=== PATIENT | female | born 1970 | race Caucasian/White ===

== ENCOUNTER 2023-04-13 08:18 | Day surgery (SDC) | payer OTHER ==
[2023-04-13 08:49] VITALS: RESP 18; TEMP 98.3
[2023-04-13] MEDS ORDERED: SODIUM CHLORIDE 0.9% 500 ML 500 ML IV ONE (08:49)
[2023-04-13] MEDS ORDERED: fentaNYL (PF) 50 MCG/ML 2 ML AMP ONE (10:07)
[2023-04-13] MEDS ORDERED: BENZOCAINE SPRAY 1 CAN TOPICAL ONE ×2 (10:21→10:26)
[2023-04-13] MEDS ORDERED: MIDAZOLAM 2 MG/2 ML VIAL IVP ONE (10:38)
[2023-04-13] MEDS ORDERED: fentaNYL (PF) 50 MCG/1 ML VIAL IVP ONE (10:51)
--- NOTE | 2023-04-13 11:29 | ECHOT ---
TRANSESOPHAGEAL ECHOCARDIOGRAM INDICATION: CVA, rule out cardiac source of thromboembolic phenomenon. PROCEDURE NOTE: After obtaining informed consent, transesophageal echocardiogram was performed in left lateral position using an Omniplane probe. Local and IV sedation were obtained using Xylocaine spray, 2 mg of Versed and 50 mcg of fentanyl. Total sedation time was 10 minutes. The patient tolerated the procedure well without any obvious immediate complications. FINDINGS: 1. There is no intracardiac thrombus within the left atrial appendage, left atrium, right atrium, right ventricle. 2. Left ventricle has normal size and systolic function. 3. Interatrial septum, there is no evidence of [id number]-aa-[id number] shunt by color-flow Doppler or [id number] shunt by agitated saline contrast study. 4. Left ventricle has normal size and systolic function. 5. Mitral valve is anatomically normal. There is mild mitral regurgitation noted. 6. Aortic valve is a 3-leaflet valve. There is no evidence of aortic stenosis or regurgitation. 7. There is mild tricuspid regurgitation. CONCLUSIONS: 1. No intracardiac thrombus. 2. Normal LV function. 3. No evidence of shunt across the interatrial septum. PLAN: I will do a monitor on her to rule out atrial fibrillation. MMODL / IJN: [id number] /
[2023-04-13] MEDS ORDERED: SODIUM CHLORIDE 0.9% 1,000 ML IV SCH (11:45)
[2023-04-13 11:52] VITALS: BP 123/58; PULSE 66
== END 2023-04-13 11:53 | disposition home or self-care (01) ==
LOC: CATHCVL 08:18
PROVIDERS: ATTEND Internal Medicine Cardiovascular Disease
DX: I67.9 Cerebrovascular disease, unspecified (principal); I34.0 Nonrheumatic mitral (valve) insufficiency; I63.81 Other cerebral infarction due to occlusion or stenosis of small artery; E78.2 Mixed hyperlipidemia; Z88.5 Allergy status to narcotic agent; Z88.2 Allergy status to sulfonamides; F17.210 Nicotine dependence, cigarettes, uncomplicated; Z79.02 Long term (current) use of antithrombotics/antiplatelets; Z79.83 Long term (current) use of bisphosphonates; Z79.899 Other long term (current) drug therapy
CPT/HCPCS: 93312; 93320; 93325; 81025; J2250; J3010

== ENCOUNTER → 2023-09-07 | Outpatient (CLI) | payer OTHER ==
[2023-09-07 10:18] VITALS: BP 142/76; PULSE 96; RESP 16; TEMP 97.5
--- NOTE | 2023-09-07 14:31 | P.PAINPG ---
Objective - Vital Signs Vital signs: Intake & Output 09/06/23 09/07/23 09/07/23 18:59 06:59 18:59 Weight 74.843 kg PQRS Measure Charge Sheet Comment: HISTORY OF PRESENT ILLNESS: A 52 yr old female as a referral from [facility] presents today w severe and chronic neck pain x 5 yr secondary to DDD, spondylosis and facet arthropathy without myelopathy for evaluation. Pt states pain level is provoked at 10/10 in intensity, constant, localized in the mid to lower cervical spine, predominantly axial, throbbing/ electric in character w occasional shooting pain towards the BL shoulders. Pain is provoked by cold weather. Pain is alleviated by medications (Lyrica 50mg #90, Zanaflex 2mg #90, Mobic 15mg #30, Valium 2mg #60), PT 2 wks which she is currently in, heat, repositioning and rest. Cervical disability score at 22. PMH: OA, HTN, Hyperlipidemia, Asthma, Vitamin D Deficiency PSH: Can not recall SH: Hx of tobacco use, No ETOH abuse, Cannabis use FH: Noncontributory All: See list Meds: See list REVIEW OF ORGAN SYSTEMS: CONSTITUTIONAL: No fevers or chills. No recent weight loss. NEUROLOGICAL: + numbness and tingling along the distal extremities. No seizure disorders or headaches. MUSCULOSKELETAL: + pain PSYCHIATRIC: Denies current depression or suicidal thoughts. Physical Examinations : Constitutional : Cooperative , not in acute distress . Neurologic : Cranial nerve II to XII intact. No focal neurological deficits. Psychiatric : alert & oriented x 3. Matching mood & appropriate affect. Judgment & insight intact. Musculoskeletal : Cervical Spine Motor strength in the deltoid and biceps: Normal right side. Normal Left side Motor strength biceps and the wrist extensors: Normal right side . Normal left side Motor strength in the triceps muscle: Normal right side. Normal left side Deep tendon reflexes: Normal at the biceps. Normal at Brachioradialis. Normal at triceps Vertebral body tenderness to deep palpation over C6 Cervical facet loading test: positive bilaterally Spurling test: positive bilaterally C6- C7 Neck distraction test: positive bilaterally Keara sign: positive bilaterally Lumbar spine Motor strength lower extremities ,thigh and legs 5/5 Right side , 5/5 Left side Deep tendon reflexes : Normal Knee Jerk. Normal Ankle Jerk Vertebral body tenderness over Fererll Test positive Lumbar facet Loading Test: positive Right / positive Left Range of motion of the lumbar spine Flexion 30 degrees, extension 10 degrees Straight Leg Raise test: Left/ Right positive at degrees Zoila test: positive right / positive left. Severe tenderness over the Sacroiliac joint on the Right / Left sides Gaenslen test: positive bilaterally Seated flexion test: positive bilaterally. Sacral spine : Severe tenderness over the Sacroiliac joint: right side / left side Range of motion: Flexion of the lumbar spine <60 degrees Range of motion: Extension of the lumbar spine <20 degrees Gaenslen's Test positive Zoila test: positive right side / left side Thigh Thrust Test Sacral Thrust Test Imaging: MRI noncontrast of the lumbar spine from 04/04/23 MRI w/ without contrast of the cervical spine from 06/19/22 reviewed Assessment/ Plan : Cervical DDD Recommendation of HAYLEY C6-C7 #1. Risks, benefits of procedure discussed and patient verbalized understanding. Admits to anti- coagulant use or medical history of diabetes. Protocol for discontinuation/ continuation of medications alphonso procedure discussed. All questions answered. I have spent greater than 30 minutes on patient care today. Dr French was available by phone for the evaluation of this patient. The time was used to review the medical records including relevant urine studies and Prescription history (MAPs), review of the available imaging, evaluation and examination of the patient, coordination of care with the medical staff and if applicable referring physicians, as well as creation of the medical record Home Medications: Ambulatory Orders Aspirin [Adult Low Dose Aspirin EC] 81 mg PO DAILY 04/07/23 Atorvastatin Calcium 20 mg PO HS 04/07/23 HYDROcodone/APAP 5-325MG [[place] 5-325] 1 tab PO Q8H PRN 04/07/23 tiZANidine [Zanaflex] 2 mg PO Q8HR PRN 04/07/23 Controlled Substance Measures - Controlled Substance Measures Is patient prescribed a controlled substance at discharge?: No
== END ==
LOC: PNWHC3 09:25
PROVIDERS: ATTEND Specialist
DX: M50.323 Other cervical disc degeneration at C6-C7 level (principal); M51.26 Other intervertebral disc displacement, lumbar region; M19.90 Unspecified osteoarthritis, unspecified site; I10 Essential (primary) hypertension; E78.5 Hyperlipidemia, unspecified; J45.909 Unspecified asthma, uncomplicated; F12.90 Cannabis use, unspecified, uncomplicated; Z72.0 Tobacco use; Z79.82 Long term (current) use of aspirin; Z88.2 Allergy status to sulfonamides; Z88.5 Allergy status to narcotic agent
CPT/HCPCS: 99211

== ENCOUNTER 2023-09-22 07:58 | Day surgery (SDC) | payer OTHER ==
[2023-09-19 09:45] VITALS: BMI 29.2
[2023-09-22] MEDS ORDERED: LACTATED RINGERS 1,000 ML IV SCH (08:05)
[2023-09-22 08:20] VITALS: TEMP 96.9
[2023-09-22 08:28] LABS: Glucose,Whole Blood 104 mg/dL (70-110)
[2023-09-22] MEDS ORDERED: DEXAMETHASONE SOD PHOSPHATE 10 MG/ML 1 ML VIAL ONE (09:12)
[2023-09-22] MEDS ORDERED: IOPAMIDOL M200 10 ML VIAL ONE (09:12)
--- NOTE | 2023-09-22 09:17 | P.PCN ---
Date of Procedure: 09/22/23 Procedure(s) Performed: PROCEDURE 1. Cervical epidural steroid injection under fluoroscopic guidance, C6-7 (fluoroscopy images available in the radiology department ) 2. Cervical epidurogram. PREOPERATIVE DIAGNOSIS: 1- Cervical Degenerative Disc Diseases 2- Cervical radiculopathy. POSTOPERATIVE DIAGNOSIS: : 1- Cervical Degenerative Disc Diseases , 2- Cervical radiculopathy. ANESTHESIA: Local anesthesia with lidocaine 1% 3 ml only EBL 0 PROCEDURE INDICATION: The patient with neck pain and radiculitis unresponsive to conservative treatment consents for procedure. PROCEDURE DESCRIPTION / TECHNIQUE: The patient was seen and identified in the preoperative area. Risks, benefits, complications, including but not limited to infections ,bleeding , allergic reactions to the medications ,and not complete pain releife, and alternatives were discussed with the patient, the patient agreed to proceed with the procedure and signed the consent. Patient was taken to the OR and time out was completed. The patient was placed in the prone position on the procedure table. A pillow was placed under the patients chest to increase the cervical interlaminar space. The cervical area was prepped and draped in the usual sterile fashion. Vital signs were closely monitored during the procedure. Using anterior-posterior fluoroscopy, the C6-7 interlaminar space was identified and the skin over this site was marked and then infiltrated with 1% lidocaine subcutaneously. Subsequently, a 20-gauge 3-1/2-inch Tuohy epidural needle was inserted and advanced toward the epidural space by means of the ``hanging-drop technique and guided by AP and lateral fluoroscopy. The correct needle position in the epidural space was verified with the injection of 2 mL of the water soluble contrast dye Isovue-200 and observing an excellent epidurogram with the epidural spread of the dye, after negative aspiration for blood and CSF and in the absence of paresthesias. then, mixture containing 20 mg Dexamethasone and 2 ml of preservative-free normal saline injected and a washout of epidurogram was seen. Needle was withdrawn intact, skin was cleansed, and bandages were applied. Complications= none. Disposition= patient was placed in supine position and transferred to the recovery room area in stable condition and there was no evidence of upper or lower extremity motor or sensory deficit after the procedure patient was discharged from recovery room after discharge criteria met and home discharge instructions was given by the staff and patient will follow with the pain clinic in 2-4 weeks
[2023-09-22 09:37] VITALS: BP 140/67; PULSE 64; RESP 19
--- NOTE | 2023-09-22 10:31 | FL ---
EXAMINATION TYPE: FL guided pain mgmt statistic DATE OF EXAM: 09/22/2023 FLUOROSCOPY Fluoroscopy time of 1.6 seconds was used during cervical epidural steroid injection. 1 image/s docum ent/s the procedure. DAP 0.72132 mGycm2.
== END 2023-09-22 09:45 | disposition home or self-care (01) ==
LOC: ORPAIN 07:58
PROVIDERS: ATTEND Specialist
DX: M50.123 Cervical disc disorder at C6-C7 level with radiculopathy (principal); Z79.82 Long term (current) use of aspirin; Z88.2 Allergy status to sulfonamides; Z88.5 Allergy status to narcotic agent
CPT/HCPCS: 62321; J1100; Q9966

== ENCOUNTER → 2023-10-08 | Outpatient (CLI) | payer OTHER ==
--- NOTE | 2023-10-08 08:39 | CT ---
EXAMINATION TYPE: CT lumbar spine wo con DATE OF EXAM: 10/08/2023 8:34 AM COMPARISON: None HISTORY: Spondylolysis, lumbar region CT DLP: 834 mGycm Automated exposure control for dose reduction was used. Unenhanced CT of the lumbar spine was performed. Bone and soft tissue window settings are submitted as well as coronal and sagittal reconstructions. Findings: The lumbar vertebral segments are normal in height. Slight grade 1 anterolisthesis of L5 on S1 second sadie to bilateral spondylolysis of L5. There is moderate degenerative disease of the L4-5 disc where there is moderate disc space narrowing. The remaining intervertebral discs are normal in height. There is no large disc herniation. There is no spinal stenosis. The paraspinal soft tissues are unremarkable. IMPRESSION: 1. Slight grade 1 anterolisthesis of L5 on S1 secondary to bilateral spondylolysis of L5. 2. Moderate degenerative disease of the L4-5 disc. 3. No spinal stenosis or lumbar disc herniation.
== END | disposition home or self-care (01) ==
LOC: RADCTMAIN 07:38
PROVIDERS: ATTEND Orthopaedic Surgery
DX: M47.816 Spondylosis without myelopathy or radiculopathy, lumbar region (principal); M51.36 Other intervertebral disc degeneration, lumbar region; M43.17 Spondylolisthesis, lumbosacral region
CPT/HCPCS: 72131

== ENCOUNTER → 2023-10-13 | Outpatient (CLI) | payer OTHER ==
[2023-10-13 10:53] VITALS: BP 144/72; PULSE 73; RESP 15; TEMP 98.4
--- NOTE | 2023-10-13 13:41 | P.PAINPG ---
Objective - Vital Signs Vital signs: Intake & Output 10/12/23 10/13/23 10/13/23 18:59 06:59 18:59 Weight 162 kg PQRS Measure Charge Sheet Comment: HISTORY OF PRESENT ILLNESS: A 53 yr old female presents today w severe and chronic neck pain x 5 yr secondary to DDD, spondylosis and facet arthropathy without myelopathy for evaluation s/p HAYLEY C6-C7 #1. Pt states she experienced 100% pain relief x 1 wk s/p procedure. Pt states pain level is provoked at 10/10 in intensity, constant, localized in the mid to lower cervical spine, predominantly axial, throbbing/ electric in character without shooting pain. Pain is provoked by cold weather. Pain is alleviated by injections, medications, PT x 6 wks which ended Aug 2023, heat, repositioning and rest. Cervical disability score at 22. Interventional procedures include HAYLEY C6-C7 x1 Medications include Lyrica 50mg #90, Zanaflex 2mg #90, Mobic 15mg #30, Valium 2mg #60 REVIEW OF ORGAN SYSTEMS: CONSTITUTIONAL: No fevers or chills. No recent weight loss. NEUROLOGICAL: + numbness and tingling along the distal extremities. No seizure disorders or headaches. MUSCULOSKELETAL: + pain PSYCHIATRIC: Denies current depression or suicidal thoughts. Physical Examinations : Constitutional : Cooperative , not in acute distress . Neurologic : Cranial nerve II to XII intact. No focal neurological deficits. Psychiatric : alert & oriented x 3. Matching mood & appropriate affect. Judgment & insight intact. Musculoskeletal : Cervical Spine Motor strength in the deltoid and biceps: Normal right side. Normal Left side Motor strength biceps and the wrist extensors: Normal right side . Normal left side Motor strength in the triceps muscle: Normal right side. Normal left side Deep tendon reflexes: Normal at the biceps. Normal at Brachioradialis. Normal at triceps Vertebral body tenderness to deep palpation over C6 Cervical facet loading test: positive bilaterally Spurling test: positive bilaterally C6- C7 Neck distraction test: positive bilaterally Keara sign: positive bilaterally Lumbar spine Motor strength lower extremities ,thigh and legs 5/5 Right side , 5/5 Left side Deep tendon reflexes : Normal Knee Jerk. Normal Ankle Jerk Vertebral body tenderness over Ferrell Test positive Lumbar facet Loading Test: positive Right / positive Left Range of motion of the lumbar spine Flexion 30 degrees, extension 10 degrees Straight Leg Raise test: Left/ Right positive at degrees Zoila test: positive right / positive left. Severe tenderness over the Sacroiliac joint on the Right / Left sides Gaenslen test: positive bilaterally Seated flexion test: positive bilaterally. Sacral spine : Severe tenderness over the Sacroiliac joint: right side / left side Range of motion: Flexion of the lumbar spine <60 degrees Range of motion: Extension of the lumbar spine <20 degrees Gaenslen's Test positive Zoila test: positive right side / left side Thigh Thrust Test Sacral Thrust Test Imaging: MRI noncontrast of the lumbar spine from 04/04/23 MRI w/ without contrast of the cervical spine from 06/19/22 reviewed Assessment/ Plan : Cervical DDD Recommendation of follow up w Dr Maddox for L4-S1 surgery scheduled 11/28/23 [place] 7.5/325mg #15 NR Use, side effects, adverse reactions and safe storage discussed. All questions answered. I have spent greater than 30 minutes on patient care today. Dr French was available by phone for the evaluation of this patient. The time was used to review the medical records including relevant urine studies and Prescription history (MAPs), review of the available imaging, evaluation and examination of the patient, coordination of care with the medical staff and if applicable referring physicians, as well as creation of the medical record - Pain Location Bilateral Neck Non-Pharmacological Interventions: Heat, Inactivity, Position/Reposition Pharmacological Interventions: Epidural, Scheduled Medication PQRS Narrative: Hx Alcohol Use (MH) No Home Medications: Ambulatory Orders Aspirin [Adult Low Dose Aspirin EC] 81 mg PO DAILY 04/07/23 Atorvastatin Calcium 20 mg PO HS 04/07/23 FLUoxetine HCL [PROzac] 40 mg PO DAILY 09/19/23 Gabapentin 300 mg PO DAILY 09/19/23 Meloxicam [Mobic] 15 mg PO DAILY PRN 09/19/23 diazePAM 2 mg PO DAILY PRN 09/19/23 traZODone HCL [Desyrel] 50 mg PO HS 09/19/23 HYDROcodone/APAP 7.5-325MG [[place] 7.5-325] 1 tab PO Q4H PRN 3 Days #15 tab 10/13/23 Controlled Substance Measures - Controlled Substance Measures Is patient prescribed a controlled substance at discharge?: Yes When asked, does pt state using other controlled substances?: No If prescribed controlled substance>3 days was MAPS reviewed?: Prescribed <3 Days
== END ==
LOC: PNWHC3 10:13
PROVIDERS: ATTEND Specialist
DX: M50.323 Other cervical disc degeneration at C6-C7 level (principal); M47.812 Spondylosis without myelopathy or radiculopathy, cervical region; F12.90 Cannabis use, unspecified, uncomplicated; Z79.82 Long term (current) use of aspirin; Z88.2 Allergy status to sulfonamides; Z88.5 Allergy status to narcotic agent
CPT/HCPCS: 99211

== ENCOUNTER → 2023-11-14 | Outpatient (CLI) | payer OTHER | END | disposition home or self-care (01) | LOC: LABPAT 13:42 | PROVIDERS: ATTEND Orthopaedic Surgery | DX: Z01.812 Encounter for preprocedural laboratory examination (principal); Z22.322 Carrier or suspected carrier of Methicillin resistant Staphylococcus aureus; M47.26 Other spondylosis with radiculopathy, lumbar region; M48.061 Spinal stenosis, lumbar region without neurogenic claudication | CPT/HCPCS: 86850; 86900; 86901; 87070 ==

== ENCOUNTER 2023-11-17 08:54 | Inpatient (IN) | payer OTHER ==
[2023-11-16 09:00] VITALS: BMI 30.2
--- NOTE | 2023-11-17 06:19 | P.HPOR ---
History of Present Illness H&P Date: 11/14/23 .D:Date: 11/14/23 : 03:46pm .T:Title: *BHAKTI JOHNSON [facility] HISTORY AND PHYSICAL Age: 53 year Height: 5' Weight: 150 lbs BMI: 29.29 kg/m2 Occupation: Disabled VAS: 10 IMPRESSION: It was my pleasure to have seen and examined Cynthia. I reviewed the patient's clinical syndrome, physical findings, and imaging studies during the appointment today. It is my impression that the patient has a diagnosis of. 1. L4-5 spondylosis with spondylolisthesis 2.L5-S1 spondylolysis with spondylosis and spondylolisthesis 3. LE radiculopathy 4. LE weakness 5. Low back pain Spine Surgery Risk Review Ms. Barakat is presenting for evaluation of low back and bilateral lower extre mity pain, bilateral lower extremity numbness, tingling, and weakness. It was my pleasure to have seen and examined Ms. Barakat. In our visit today we have had a chance to go over subjective complaints, physical examination findings and treatments including the natural course history without intervention and various interventional options. The patients imaging demonstrates: Xray of the Lumbar spine 08/24/23 at [facility]: L4-S1 spondyloisis with b/l foraminal stenosis. Disc height collapse, severe facet arthrosis, b/l pars defects at L5 with Grade I spondylolisthesis L5-S1. L4-5 with severe collapse and spondylosis. Flattened LL due to deformity. NO acute fractures. NO lesions noted. AP pelvis shows congruent level pelvis w/o fracture MRI done at [facility] MRI w/o of the lumbar spine. Report is reviewed. See chart. Shows severe stenosis L4-S1 with pars defects and listhesis/spondylosis. CT ordered. On physical exam, Ms. Barakat demonstrates: Weakness in b/l LE. She has paresthesias in her L4-S1 distribution. She has difficulty with ambulation due to the pain and weakness. She reports urinary incontinence as of late with minor stress which is new for her. She deneis any perineal sx. She states LE pain down to her feet b/l. She states low back pain that is severe. I have explained to the patient that as their condition progresses it will cause further neurological deficits and eventual paralysis. Based on the patients imaging, physical exam, and the rapid progression and disabling nature of their symptoms, at this time I recommend surgery in the form of a: Lumbar 4 to Sacral 1 open decompression and posteriolateral, interbody fusion. . I discussed the risk and benefits of this procedure at length with Ms. Barakat. The patient agreed to considered pursuing the procedure abovementioned. Prior to surgery, she should follow up with her PCP (Cardio, ID, IM etc) for clearance. Questions were invited and answered, and the patient wishes to proceed as outlined below. Currently, I am recommendin.Lumbar 4 to Sacral 1 open decompression and posteriolateral, interbody fusion. 2.Review of surgical risks and benefits as well as an educational packet on the proposed surgical procedure. Risks: All surgical procedures come with inherent risks, including those related to positioning, anesthesia, intraoperative findings, and postoperative complications. It is important to understand that surgery does not come with any guarantee of a successful outcome as complications and adverse events are always possible. The patient was given a handout in office today discussing the surgical procedure and risks associated with the intervention, both of which were discussed with the patient. These risks include but are not limited to the f ollowing: * Experiencing same, different or even worse symptoms in back, neck, arms, or legs compared to before surgery. Requiring further surgery or other forms of treatment presently or at some time in the future at same or other levels of the intended spine surgery. On an extreme but fortunately relatively rare basis severe complication such as blindness, stroke, heart attack, temporary and/or permanent nerve injury, paralysis, coma, or may occur, sometimes without known explanation. Surgical complications may include but are not limited to risk of infection, fluid accumulation in the surgical dissection site, including a seroma or hematoma, that requires additional surgery, wound drainage, bleeding, new numbness or weakness, vision changes/loss, spinal fluid leakage, non-healing and/or infected incision, headaches, difficulty or inability to swallow, hoarseness, hemopneumothorax, pneumothorax, impotence, retrograde ejaculation, vaginal dryness; injury to nerves, spinal cord, blood vessels, lymphatics or other vital organs (i.e., bowel injury, injury to the great vessels); heterotopic bone formation; complications related to the hardware such as screws, rods, cages including misplaced hardware, device failure, instrumentation at the wrong spine level, hardware fracture/breakage, or hardware loosening; vertebral failure of the spinal column above or below the newly placed hardware; retained surgical instrumentations or devices and the need for further surgery. * Medical risks of the planned spine surgery include but are not limited to generalized Infections to the whole body or local areas outside of the surgical site (sepsis), heart attack, bleeding, anaphylaxis, meningitis, seizure, epilepsy, hearing loss, burn duke, laceration of the head or other areas of the body, bruising, hypersensitivity of the skin, bladder over distension; allergic reaction; shoulder injury related to positioning; fat, blood and air clots to other areas of the body like heart, lungs, brain; failure of internal organs such as lungs, kidneys, liver and excessive bleeding. If blood transfusions are necessary, note that transfusions may cause intolerance reactions such as anaphylaxis or other complex reactions. Despite best efforts, the results of spine surgery might not heal in terms of bone, soft tissues such as skin, fascia, ligaments, and joints. Additionally, in order to achieve best possible results, spine surgery may be carried out beyond the initially planned levels and involve decompression, fusion including insertion of hardware at levels other than the original intended area of surgical interest change some portions of the procedure in order to ensure the best possible outcomes. With spine surgery and spinal fusion, there are different off label uses of instrumentation (devices, implants and hardware) as well as biological substances (bone morphogenic proteins, demineralized bone matrix) as well as using extra bone from allograft sources (i.e. cadaver bone) or autograft (iliac crest bone, ribs, or the spine itself). The patient has been given information about these practices and their inherent risks and benefits. [facility] is an educational center that serves as a training facility for neurosurgical and orthopedic WAIST CUTTER and Nursing students. Physician assistants are medically trained surgical providers who function in the outpatient, inpatient, and operating room setting under the direct supervision of the attending surgeon. [facility] has multiple operating rooms with single and overlapping rooms running daily. They currently function under the required guidelines as produced by the Senate Finance Committee with regards to the overlapping rooms and will continue to comply with changes to this policy as they occur. The requirements include and are complied with as follows: (1) the critical portions of the overlapping rooms will not occur at the same time, (2) the attending physician will be physically present during the critical portions of the procedure and immediately available during the entire case, and (3) a back-up attending is designated should the primary attending not be immediately availa ble. The patient has had a chance to review all the listed information, has been given print outs detailing this information, and has had all his/her questions answered to their satisfaction. It was my pleasure to have seen and examined Ms. Barakat. In our visit today we have had a chance to go over my understanding of our patient's current condition, the natural course history without intervention and various interventional options. Questions were invited and answered, and the patient wishes to proceed as outlined above. I have seen and examined the patient for 25 minutes and we have spent more than 50% of the time in repeat and detailed counseling about the patient's condition, its natural course history with out and as much as can be predicted with surgery and re-review of various surgical treatment options. In conclusion, Ms. Barakat and requested we proceed with the above suggested surgery and are willing to accept risks and limitations of the suggested surgery as nature of the disease process and our best attempts at treatment for the condition. Thank you again for allowing us to be part of your patient's care. Please don't hesitate to contact me if you have any further questions. FOLLOW UP: Post Procedure PATIENT EDUCATION: Medications Reviewed: YES In our visit today Ms. Barakat and I have had a chance to go over my understanding of the patient's current condition, the natural course history without intervention and various interventional options. Questions were invited and answered, and the patient wishes to proceed as outlined above. I will be sure to keep you updated after Ms. Barakat returns here for further follow-up. Thank you again for your referral. Please do not hesitate to contact me if you have any further questions. Signed and authenticated by: Aldo Gunn [facility] [address] [facility], [address] [address] This message is confidential, intended only for the named recipient(s) and may contain information that is privileged or exempt from disclosure under applicable law. If you are not the intended recipient(s), you are notified that the dissemination, distribution or copying of this information is strictly prohibited. If you received this message in error, please notify the sender then delete this message. 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 Past Anesthesia/Blood Transfusion Reactions: No Reported Reaction Past Psychological History: Anxiety, Depression Additional Psychological History / Comment(s): . Smoking Status: Current every day smoker Past Alcohol Use History: None Reported Additional Past Alcohol Use History / Comment(s): . Past Drug Use History: Marijuana Additional Drug Use History / Comment(s): instructed to hold 24 hrs prior to surgery - Past Family History Mother Family Medical History: No Reported History Medications and Allergies Home Medications Medication Instructions Recorded Confirmed Type Aspirin [Adult Low Dose Aspirin EC] 81 mg PO DAILY 04/07/23 11/16/23 History Atorvastatin Calcium 20 mg PO HS 04/07/23 11/16/23 History FLUoxetine HCL [PROzac] 40 mg PO DAILY 09/19/23 11/16/23 History Gabapentin 300 mg PO TID 09/19/23 11/16/23 History diazePAM 2 mg PO DAILY PRN 09/19/23 11/16/23 History traZODone HCL [Desyrel] 50 mg PO HS 09/19/23 11/16/23 History Albuterol Sulfate [Ventolin HFA] 1 - 2 puff INHALATION Q6H PRN 11/16/23 11/16/23 History Cholecalciferol [Vitamin D3 (25 25 mcg PO DAILY 11/16/23 11/16/23 History Mcg = 1000 Iu)] Allergies Allergy/AdvReac Type Severity Reaction Status Date / Time Sulfa (Sulfonamide Allergy Swelling Verified 11/16/23 08:38 Antibiotics) codeine AdvReac Nausea & Verified 11/16/23 08:38 Vomiting Physical Examination Osteopathic Statement: *. No significant issues noted on an osteopathic structural exam other than those noted in the History and Physical/Consult.
[~2023-11-17 08:54] MED LIST: ONDANSETRON 4 MG/2 ML VIAL IVP PRN; TRANEXAMIC 1,000 MG/100ML-NACL 1,000 MG in SALINE 1 100ML.BAG IVPB PRN
[2023-11-17] MEDS: LACTATED RINGERS 1,000 ML IV SCH (09:34)
[2023-11-17] MEDS: LACTATED RINGERS 1,000 ML IV ONE ×2 (09:50→14:25)
[2023-11-17] MEDS: ACETAMINOPHEN TAB 500 MG TAB PO PRN (09:53)
[2023-11-17] MEDS: SCOPOLAMINE 1 MG/72 HR PATCH TRANSDERM ONE (09:53)
[2023-11-17] MEDS: ONDANSETRON 4 MG/2 ML VIAL IVP ONE (09:53)
[2023-11-17] MEDS: GABAPENTIN 300 MG CAP PO PRN (09:53)
[2023-11-17] MEDS: DEXAMETHASONE SOD PHOSPHATE 4 MG/ML 1 ML VIAL IV ONE (09:54)
[2023-11-17] MEDS ORDERED: KETAMINE HCL IN 0.9 % NACL 50 MG/5 ML SYRINGE ONE (11:32)
[2023-11-17] MEDS ORDERED: GLYCOPYRROLATE 0.2 MG/ML 2 ML VIAL ONE (11:32)
[2023-11-17] MEDS ORDERED: ePHEDrine 50 MG/ML 1 ML VIAL ONE (11:32)
[2023-11-17] MEDS ORDERED: MIDAZOLAM 2 MG/2 ML VIAL ONE (11:32)
[2023-11-17] MEDS ORDERED: TRANEXAMIC 1,000 MG/100ML-NACL PREMIX BAG ONE (11:32)
[2023-11-17] MEDS ORDERED: HYDROmorphone (PF) 1 MG/ML ONE (11:32)
[2023-11-17] MEDS ORDERED: SUCCINYLCHOLINE CHLORIDE 200 MG/10 ML VIAL IV ONE (11:32)
[2023-11-17] MEDS ORDERED: fentaNYL (PF) 50 MCG/ML 2 ML AMP ONE (11:32)
[2023-11-17] MEDS ORDERED: NEOSTIGMINE 1 MG/ML 10 ML VIAL ONE (11:32)
[2023-11-17] MEDS ORDERED: ROCURONIUM 10 MG/ML (5 ML VIAL) IV ONE (11:32)
[2023-11-17] MEDS ORDERED: PROPOFOL 10 MG/ML 20 ML VIAL IV ONE (11:32)
[2023-11-17] MEDS ORDERED: LIDOCAINE 1% INJ 10MG/ML (20 ML MDV) ONE (11:32)
[2023-11-17] MEDS: THROMBIN (BOVINE) 5,000 UNIT VIAL TOPICAL ONE (12:43)
[2023-11-17] MEDS: ceFAZolin 3,000 MG in SODIUM CHLORIDE 0.9% IRRIGATIO 3,000 ML IRRIGATION ONE (14:42)
[2023-11-17] MEDS: GENTAMICIN 80 MG in SODIUM CHLORIDE 0.9% IRRIGATIO 3,000 ML IRRIGATION ONE (14:43)
[2023-11-17] MEDS ORDERED: MAGNESIUM HYDROXIDE 2,400 MG/30 ML CUP PO PRN (14:50)
[2023-11-17] MEDS ORDERED: SENNOSIDES-DOCUSATE SODIUM 1 EACH TAB PO PRN (14:50)
[2023-11-17] MEDS: VANCOMYCIN 1,000 MG VIAL MISCELLANE ONE (14:52)
--- NOTE | 2023-11-17 15:38 | FL ---
EXAMINATION TYPE: FL guidance operating room, XR lumbar spine 2 or 3V Intraoperative/procedural fluor oscopic services were provided. Total fluoroscopy time is 1 minute 20 seconds seconds with a total of 11 submitted images to PACS. Please see the operative/procedural note for further details. DAP: [id number]
--- NOTE | 2023-11-17 15:52 | P.OP ---
Date of Procedure: 11/17/23 Preoperative Diagnosis: 1. L4-5 SPONDYLOSIS WITH SEVERE STENOSISS 2. 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 LE WEAKNESS 4. NEUROGENIC CLAUDICATION 5. LE PARESTHESIAS 6. LOW BACK PAIN Postoperative Diagnosis: 1. L4-5 SPONDYLOSIS WITH SEVERE STENOSISS 2. 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 LE WEAKNESS 4. NEUROGENIC CLAUDICATION 5. LE PARESTHESIAS 6. LOW BACK PAIN 7. DURAL EROSION L4-5 DUE TO STENOSIS AND BONY OSTEOPHYTES Procedure(s) Performed: L4-S1 OPEN posterolateral and interbody fusion with MARI L4-5 posterior osteotomy for deformity correction, disc correction and access and decompression (25298) L4-5, L5-S1 posterolateral and interbody fusion (81966, 43331) L4-5, L5-S1 laminoforaminotomy/decompressive laminectomy (66742, 21684) L4-S1 instrumentation (53671) Dural repair due to dural erosion (51932) Insertion of biomechanical device L5-S1 (interbody cage) (13461o9) Clear Vascular Navigation for screw placement (51683) USE OF IONM ALL SCREWS TESTING >15 mA Implants: CLAUDETTE EVEREST RODS AND SCREWS GLOBUS SABLE CAGES -12 MM 9-17 15 DEG MED -10 MM 9-17 15 DEG MED AUTOGRAFT, ALLOGRAFT, IFACTOR, MAGNATOS, CONTOUR Anesthesia: GETA Surgeon: Aldo Maddox Wind Project Manager #1: Chuy Quach (WAS PRESENT FROM POSITIONING TO END OF VICKY PLACEMENT AND FINAL TIGHTENING) Wind Project Manager #2: Jonah Landrum (WAS PRESENT FROM END OF VICKY PLACEMENT TO DRESSING PLACEMENT) Estimated Blood Loss (ml): 350 IV fluids (ml): 1,200 Urine output (ml): 350 Pathology: none sent Condition: stable Disposition: PACU Indications for Procedure: Ms. Barakat is presenting for evaluation of low back and bilateral lower extremity pain, bilateral lower extremity numbness, tingling, and weakness. It was my pleasure to have seen and examined Ms. Barakat. In our visit today we have had a chance to go over subjective complaints, physical examination findings and treatments including the natural course history without intervention and various interventional options. The patients imaging demonstrates: Xray of the Lumbar spine 08/24/23 at [facility]: L4-S1 spondyloisis with b/l foraminal stenosis. Disc height collapse, severe facet arthrosis, b/l pars defects at L5 with Grade I spondylolisthesis L5-S1. L4-5 with severe collapse and spondylosis. Flattened LL due to deformity. NO acute fractures. NO lesions noted. AP pelvis shows congruent level pelvis w/o fracture MRI done at [facility] MRI w/o of the lumbar spine. Report is reviewed. See chart. Shows severe stenosis L4-S1 with pars defects and listhesis/spondylosis. CT ordered. On physical exam, Ms. Barakat demonstrates: Weakness in b/l LE. She has paresthesias in her L4-S1 distribution. She has difficulty with ambulation due to the pain and weakness. She reports urinary incontinence as of late with minor stress which is new for her. She deneis any perineal sx. She states LE pain down to her feet b/l. She states low back pain that is severe. I have explained to the patient that as their condition progresses it will cause further neurological deficits and eventual paralysis. Based on the patients imaging, physical exam, and the rapid progression and disabling nature of their symptoms, at this time I recommend surgery in the form of a: Lumbar 4 to Sacral 1 open decompression and posteriolateral, interbody fusion. . I discussed the risk and benefits of this procedure at length with Ms. Barakat. The patient agreed to considered pursuing the procedure abovementioned. Prior to surgery, she should follow up with her PCP (Cardio, ID, IM etc) for clearance. Questions were invited and answered, and the patient wishes to proceed as outlined below. Currently, I am recommendin.Lumbar 4 to Sacral 1 open decompression and posteriolateral, interbody fusion. Description of Procedure: L4-S1 open Decompression and fusion (MARI & free hand) The patient was seen and examined in the preoperative area. All preoperative protocols were followed. Informed consent was obtained, risks and benefits of the procedure were discussed at length. Risks including bleeding infection damage to the surrounding tissue and risk of reoperation were discussed with the patient. Risk of anesthesia up to and including was discussed with the patient. These are outlined in the risk review. They were willing to accept these risks and all the risks of surgery. The patient was given a weight-based dose of antibiotics in the form of 2 g Ancef. The patient was seen and evaluated by the anesthesia team who deemed them fit for surgery. The site was marked, the patient was willing to proceed with the procedure. The patient was transferred to the operative suite by the Department of anesthesia. They were then drifted off to sleep by the department anesthesia and GETA was performed. The patient tolerated this well. Cano catheter was placed by nursing staff, a-traumatically. Once confirmation of lines and ventilation the patient was transferred to a prone Joseph table very carefully. All bony prominences including wrists, elbows, axilla, chest, hips, and thighs, and feet were padded very well. Special attention was paid to the genitalia, and these were padded accordingly. SCDs were placed on bilateral lower extremities and were connected. Arms were well padded and placed on arm boards up and out in the 90/90 position. Once in position, again we confirmed good ventilation capabilities and that lines were running appropriately. The patient s Lumbar spine was then exposed. 1010s were placed outlining the incision site. Standard alcohol was used to clean the incision site and allowed to dry. C-arm was used to needle localize the pedicles at L4-S1 and bio-heydi the patient and confirm level for incision which was marked with a skin marker. Operative briefing was performed with all teams and everyone in agreement to proceed. The patient was then prepped and draped in a normal sterile fashion. Timeout was then performed, and all parties agreed with the procedure to be performed. Midline skin incision was made over the previously bio-marked area and dissection taken down over the SP of L3-S1. L4-S1 was taken out over facet joints and TPs and a penfield 4 used to heydi the L4 pedicle. Lateral image used to confirm levels. Once confirmed, SP tracker was placed on L4 and secured. A 3D Zhiem spin was then obtained and registered. It was then confirmed to be accurate. Then using a navigated high speed purvi navigated awl tap and navigated screw trolley coach driver we placed screws into L4-S1 bilaterally. It was noted howevere that the navigation was off and flouroscopic shots showed screws to now follow the exact path that Navigation had stated. It was likely due to the high instability at these segments due to pars defects and slip. We then switched to lateral flouro and free hand technique for screw placement from L4-S1. Screws were proceeded to be placed b/l at pedicles from L4-S1 using a freehand technique and lateral fluoroscopy. High speed purvi was used to create the hydro generation supervisor hole, and the pedicle finder was placed using fluoroscopy. Ball tip probe was used to sound the 4 pedicle mark and the screw was then placed under fluoroscopic guidance. Once screws were placed they were confirmed to be in good position using AP and Lateral fluoroscopy. The wound was then irrigated. Screws were tested and all tested above 15 mA. We then proceeded to decompression and cage placement. Attention was then turned to interbody fusion at L5-S1. There was exuberant scar and osteophyte formation, deformity due to b/l pars defects and cystic formation around the neural elements. Bilateral laminectomy, complete facetectomy and foraminotomy performed at L5-S1 using high speed purvi and Kerrison rongeur. The ligamentum was removed and the dural sac decompressed. Exiting and traversing roots visualized and decompressed. Neural elements were then protected, and disc space accessed with an osteotome. Osteotome was used to access disc space followed by Raptor osteotome. Sequential shaving then done under lateral imaging and complete discectomy performed using crystal, pituitary and curette. Once good bleeding endplates accomplished and good height confucianist with trials, a combination of autograft, allograft and synthetic placed anterior in the disc space. The cage was then selected and impacted into place under lateral imaging. The cage was then expanded restoring height, lordosis and alignment. The cage was backfilled with bone graft through a funnel. The carbon rod inserter was removed and the area inspected. Good cage placement, stable cage and no injuries. Area was irrigated copiously, and meticulous hemostasis achieved. We then turned our attention to L4-5 region. Attention was then turned to interbody fusion at L4-5 and osteotomy for deformity correction. Bilateral laminectomy, complete facetectomy and foraminotomy performed at L4-5 using high speed purvi and Kerrison rongeur. The ligamentum was removed and the dural sac decompressed. Exiting and traversing roots visualized and decompressed. Upon removal of the ligamentum and bony elements at the cranial portion of L4 we encountered a dural erosion due to the severe stenosis in this region along with bony osteophyte formation and lig amental hypertrophy growing in to the dura. this was removed and there was a small punctate like lesion in the dura due to the bony erosion. This was closed with 6-0 prolene in a simple fashion and a patch graft sewen in to this. Valsalva to 40 mmHg was performed and no further leaks noted. We then proceeded. Neural elements were then protected, and Osteotome was used to perform osteotomy posterior 1/3 of L4-5 for deformity correction. Under lateral fluro guidance the osteotome was passed anteriorly into the VB of L4 inferior endplate and L5 superior endplate. This allowed for access and complete removal of disc as well as deformity correction as the level was now able to be manipulated appropriately. Sequential shaving was then done under lateral imaging and complete discectomy performed using crystal, pituitary and curette. Once good bleeding endplates accomplished and good height confucianist with trials, a combination of autograft, allograft and synthetic placed anterior in the disc space. The cage was then selected and impacted into place under lateral imaging. The cage was then expanded restoring height, lordosis and alignment. The cage was backfilled with bone graft through a funnel. The carbon rod inserter was removed and the area inspected. Good cage placement, stable cage and no injuries. Area was irrigated copiously, and meticulous hemostasis achieved. The wound and disc spaces were irrigated and meticulous hemostasis achieved. Rods were then sized and selected and placed into S1 screws b/l. Set screws locked these in place and then sequentially reduced into L4 and L5 b/l for alignment confucianist. This was accomplished. Set screws were then all placed and finally tightened. TPs were then decorticated with a high speed purvi. The wound was irrigated with 2L betadine solution followed by 3L Ancef irrigation, 3L gentamicin irrigation and 3L NSS. Tisseal was then placed over the dural patch and repair. Surgicel was placed over the dura as well. Autograft and MagnatOs then placed in the posterolateral gutters and impacted into place. Deep drain placed and secured to the skin. Final images confirmed good placement of hardware and good reduction of listhesis as well as confucianist of height and lordosis. Fascia was then closed with #1 PDS. Deep subq closed with 0 Vicryl. Superficial subq closed with 2-0 Vicryl and skin with giulia. Wound edges approximated very well. Wound was then cleaned with alcohol and dried. Wounds dressed with Optifoam dressings. The patient was then transferred off the table back to their hospital bed a-traumatically. Drain maintained suction. They were extubated by the department of anesthesia. They were then transferred to PACU in stable condition having tolerated the procedure with no complications.
[2023-11-17] MEDS: HYDROmorphone 0.5 MG/0.5 ML SYRINGE IVP PRN (16:00)
[2023-11-17] MEDS: NALOXONE 0.4 MG/ML 1 ML VIAL ONE (18:16)
[2023-11-17] MEDS: GABAPENTIN 300 MG CAP PO SCH (18:30)
[2023-11-17] MEDS: ACETAMINOPHEN TAB 325 MG TAB PO SCH (18:35)
[2023-11-17] MEDS ORDERED: ALBUTEROL NEBULIZED 2.5 MG/3 ML INHALATION PRN (18:37)
[2023-11-17] MEDS: ONDANSETRON 4 MG/2 ML VIAL IVP PRN (19:08)
--- NOTE | 2023-11-17 19:14 | P.CONS ---
History of Present Illness - Reason for Consult Consult date: 11/17/23 HLD Requesting physician: Aldo Maddox - Chief Complaint back pain - History of Present Illness Patient is a 53-year-old female with a history of COPD, prior CVA with left- sided weakness, and dyslipidemia who presented to the hospital for elective L4- S1 decompression with laminectomy and fusion. On arrival to the floor she was quite lethargic with multiple episodes of apnea. Narcan 0.2 milligrams was administered by nursing. I was then alerted to her level of apnea. Patient seen and examined at bedside. She is lethargic but arouses to voice. Immediately upon arising she is complaining of a headache that is worse at the back of her neck and extends forward. She is also feeling nauseous after the Narcan. She states her headache is much worse than her back pain. Her ex- is at bedside and answers majority of questions for her. Vital signs reviewed General: nontoxic, no distress, appears at stated age Derm: warm, dry Eyes: EOMI, no lid lag, anicteric sclera, pupils equal round reactive to light ENT: Nose and ears atraumatic Cardiovascular: S1S2 reg, no murmur, no edema Lungs: Decreased bs bilateral, no rhonchi, no rales, no wheeze, no accessory muscle use Abdominal: soft, nontender to palpation, no guarding Ext: no gross muscle atrophy, no contractures Neuro: CN II-XII grossly intact, No focal neuro deficits Psych: Alert, oriented, appropriate affect Assessment/Plan: 53-year-old female status post decompressive laminectomy and fusion L4-S1 Headache, possible dural Vomiting as reaction to narcan Probable sleep apnea - just received narcan for over sedation - d/w Dr. Maddox. Caffeine 250 mg once, Fioricet, Decadron 10 mg IV push x 1 and then 6 every 6, leave that for the next 24 hours. -Needs outpatient sleep study. COPD without exacerbation -Duoneb QID, Albuterol every 2 hours as needed History of stroke -Resume aspirin when okay with orthopedic surgery Dyslipidemia -Atorvastatin 20 mg at night nicotine dependency -Cessation Imaging: None reviewed Data Review: Preop blood work reviewed and hemoglobin 14.2, creatinine 0.7, A1c 5.9 Thank you for allowing us to participate in the care of this pleasant patient. Do not hesitate to contact us with questions. Someone can be reached from the [facility] [place] hospitalist group all hours of the day at [phone] or via perfect serve. This dictation was prepared using [employer] voice recognition software. Though every attempt is made to correct errors during dictation some may still exist. 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 Past Anesthesia/Blood Transfusion Reactions: No Reported Reaction Past Psychological History: Anxiety, Depression Additional Psychological History / Comment(s): . Smoking Status: Current every day smoker Past Alcohol Use History: None Reported Additional Past Alcohol Use History / Comment(s): . Past Drug Use History: Marijuana Additional Drug Use History / Comment(s): instructed to hold 24 hrs prior to surgery - Past Family History Mother Family Medical History: No Reported History Medications and Allergies Home Medications Medication Instructions Recorded Confirmed Type Aspirin [Adult Low Dose Aspirin EC] 81 mg PO DAILY 04/07/23 11/17/23 History Atorvastatin Calcium 20 mg PO HS 04/07/23 11/17/23 History FLUoxetine HCL [PROzac] 40 mg PO DAILY 09/19/23 11/17/23 History Gabapentin 300 mg PO TID 09/19/23 11/17/23 History diazePAM 2 mg PO DAILY PRN 09/19/23 11/17/23 History traZODone HCL [Desyrel] 50 mg PO HS 09/19/23 11/17/23 History Albuterol Sulfate [Ventolin HFA] 1 - 2 puff INHALATION Q6H PRN 11/16/23 11/17/23 History Cholecalciferol [Vitamin D3 (25 25 mcg PO DAILY 11/16/23 11/17/23 History Mcg = 1000 Iu)] Allergies Allergy/AdvReac Type Severity Reaction Status Date / Time Sulfa (Sulfonamide Allergy Swelling Verified 11/17/23 09:33 Antibiotics) codeine AdvReac Nausea & Verified 11/17/23 09:33 Vomiting Physical Exam Osteopathic Statement: *. No significant issues noted on an osteopathic structural exam other than those noted in the History and Physical/Consult. Vitals: Vital Signs Temp Pulse Pulse Resp BP BP Pulse Ox 11/17/23 18:11 71 17 116/76 98 11/17/23 17:30 89 16 151/79 93 L 11/17/23 17:15 87 16 108/73 94 L 11/17/23 17:00 81 16 94/52 95 11/17/23 16:45 73 16 117/54 99 11/17/23 16:30 73 16 99/51 99 11/17/23 16:15 58 L 16 102/53 100 11/17/23 15:53 71 16 107/54 100 11/17/23 15:38 97.3 F L 71 16 118/58 99 11/17/23 09:36 98.0 F 59 L 16 116/58 98 Intake and Output 11/17/23 11/17/23 11/17/23 06:59 14:59 22:59 Intake Total 1752 600 Output Total 800 Balance 1752 -200 Intake: IV 1752 600 Output: Urine 550 Estimated Blood Loss 250 Other: Weight 71.2 kg 71.2 kg
[2023-11-17] MEDS: ACETAMINOPHEN IV (For NPO) 1,000 MG in EMPTY BAG 1 BAG IVPB SCH (19:18)
[2023-11-17] MEDS: CYCLOBENZAPRINE 5 MG TAB PO PRN (19:18)
[2023-11-17] MEDS: ATORVASTATIN 20 MG TAB PO SCH (21:15)
[2023-11-17] MEDS: DEXAMETHASONE SOD PHOSPHATE 10 MG/ML 1 ML VIAL IVP STA (21:15)
[2023-11-17] MEDS: IPRATROPIUM-ALBUTEROL 3 ML NEB INHALATION SCH (21:22)
[2023-11-17] MEDS: CAFFEINE-SODIUM BENZOATE 500 MG in SODIUM CHLORIDE 0.9% 1,000 ML IVPB ONE (21:41)
[2023-11-17] MEDS: traZODone HCL 50 MG TAB PO SCH (22:48)
[2023-11-17] MEDS: DEXAMETHASONE SOD PHOSPHATE 10 MG/ML 1 ML VIAL IVP SCH (23:55)
[2023-11-18] MEDS: BUTALB/APAP/CAFF 50-325-40MG TAB PO PRN (00:05)
[2023-11-18] MEDS: HYDROcodone/APAP 10-325MG 1 EACH TAB PO PRN ×2 (02:08→20:21)
[2023-11-18] MEDS ORDERED: CALCIUM CARBONATE 500 MG CHEWABLE PO PRN (06:34)
[2023-11-18] MEDS: HYDROmorphone 0.5 MG/0.5 ML SYRINGE IVP PRN (06:53)
[2023-11-18] MEDS: FLUoxetine HCL 20 MG CAP PO SCH (07:47)
[2023-11-18 08:12] LABS: HCT 37.3 % (34.0-46.0); HGB 12.2 gm/dL (11.4-16.0); MCH 30.5 pg (25.0-35.0); MCHC 32.7 g/dL (31.0-37.0); MCV 93.2 fL (80.0-100.0); Platelet Count 324 k/uL (150-450); RDW 13.8 % (11.5-15.5); WBC 22.6 k/uL (3.8-10.6)
[2023-11-18] MEDS: IPRATROPIUM-ALBUTEROL 3 ML NEB INHALATION SCH (08:28)
[2023-11-18] MEDS: HYDROmorphone 1 MG/ML 1 ML SYRINGE IVP PRN (10:39)
--- NOTE | 2023-11-18 10:49 | P.PN ---
Subjective Progress Note Date: 11/18/23 Patient is a 53-year-old female with a history of COPD, prior CVA with left- sided weakness, and dyslipidemia who presented to the hospital for elective L4- S1 decompression with laminectomy and fusion. On arrival to the floor she was quite lethargic with multiple episodes of apnea. Narcan 0.2 milligrams was administered by nursing. I was then alerted to her level of apnea. There was concerns for possible spinal headache and she was started on caffiene, decadron, and fioricet. Patient seen and examined at bedside. She complains of severe NIX, nasuea, abdominal pain and cramping, and back pain. She states that she is feeling trapped and her PTSD. She has chronic abdominal pain and bloating when she is stressed and this feels similar. Vital signs reviewed General: Moderate distress, appears at stated age Cardiovascular: S1S2 reg, no murmur Lungs: CTA bilateral, no rhonchi, no rales, no accessory muscle use Abdominal: Soft, nontender to palpation, no guarding Ext: No gross muscle atrophy, no edema b/l lower extremities, no contractures Neuro: CN II-XI grossly intact, no focal neuro deficits Psych: Alert, oriented, appropriate affect Assessment/Plan: 53-year-old female status post decompressive laminectomy and fusion L4-S1 Headache, possible Spinal Abdominal pain Back pain Probable sleep apnea - increased norco to 10 mg 2 tabs for severe pain - encouraged patient to take decadron to help with NIX and nausea - Await further orthospine recs - Dilaudid 0.5-1 mg IVP q3 hours as needed for pain -Needs outpatient sleep study, Dr. Mercedes's name is added to D/C tab COPD without exacerbation -Duoneb QID, Albuterol every 2 hours as needed History of stroke -Resume aspirin when okay with orthopedic surgery PTSD - avoid combining benzo with pain mediations - add atarax 25 mg PO TID for anxiety Dyslipidemia -Atorvastatin 20 mg at night nicotine dependency -Cessation Imaging: Await CT lumbar spine Data Review: Include CBC which is remarkable for white blood cell count 22.6, , Await BMP Thank you for allowing us to participate in the care of this pleasant patient. Do not hesitate to contact us with questions. Someone can be reached from the [facility] hospitalist group all hours of the day at [phone] or via perfect serve. This dictation was prepared using [employer] voice recognition software. Though every attempt is made to correct errors during dictation some may still exist. Objective - Vital Signs Vital signs: Vital Signs Temp 97.8 F 11/18/23 07:42 Pulse 71 11/18/23 07:42 Resp 18 11/18/23 07:42 BP 146/72 11/18/23 07:42 Pulse Ox 96 11/18/23 07:42 FiO2 Intake & Output 11/17/23 11/18/23 11/18/23 18:59 06:59 18:59 Intake Total 2352 900 Output Total 800 2260 Balance 1552 -1360 Weight 71.2 kg Intake: IV 2352 Oral 900 Output: Drainage 160 Back 160 Urine 550 2100 Estimated Blood Loss 250 Other: # Voids 2 - Labs CBC & Chem 7: 11/18/23 07:15 Labs: Abnormal Lab Results - Last 24 Hours (Table) 11/18/23 Range/Units 07:15 WBC 22.6 H (3.8-10.6) k/uL
[2023-11-18 11:06] LABS: African American GFR (CKD) >90 (>60 ml/min/1.73 sqM); Anion Gap 8 mmol/L; Blood Urea Nitrogen 8 mg/dL (7-17); Calcium 9.1 mg/dL (8.4-10.2); Carbon Dioxide 24 mmol/L (22-30); Chloride 105 mmol/L (98-107); Glucose 136 mg/dL (74-99); Non-African American GFR(CKD) >90 (>60 ml/min/1.73 sqM); Sodium 137 mmol/L (137-145)
--- NOTE | 2023-11-18 11:59 | P.PN ---
Subjective Progress Note Date: 11/18/23 Principal diagnosis: 1. L4-5 SPONDYLOSIS WITH SEVERE STENOSISS 2. 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 LE WEAKNESS 4. NEUROGENIC CLAUDICATION 5. LE PARESTHESIAS 6. LOW BACK PAIN Patient was seen at bedside this morning lying the supine position with dressing present over lumbar spine and drain in place. Patient says she has had heada ches since surgery yesterday. There was dural tear which was repaired in surgery and therefore patient has been lying supine. Patient says she has been very uncomfortable lying flat since surgery. Patient says she does feel bloated and is complaining of abdominal pain. Patient says she has not had bowel movement since surgery. Cano is in place currently. Patient is wondering when she'll be able to sit up. Patient says she is currently having some pain low back near the incision. Patient's notes some weakness the left lower extremity which was present prior to surgery as well. Patient denies chest pain, fever, shortness breath, change in vision, loss of bowel/bladder control. Objective - Vital Signs Vital signs: Vital Signs Temp 97.8 F 11/18/23 07:42 Pulse 71 11/18/23 07:42 Resp 18 11/18/23 07:42 BP 146/72 11/18/23 07:42 Pulse Ox 96 11/18/23 07:42 FiO2 Intake & Output 11/17/23 11/18/23 11/18/23 18:59 06:59 18:59 Intake Total 2352 900 Output Total 800 2260 Balance 1552 -1360 Weight 71.2 kg Intake: IV 2352 Oral 900 Output: Drainage 160 Back 160 Urine 550 2100 Estimated Blood Loss 250 Other: # Voids 2 - Exam Patient lying in the supine position with dressing present over lumbar and dressing in place. Dressing appears to be clean, dry, intact. Minimal serosanguineous output overnight. Sensation is equal, symmetric, 5 intact throughout the upper and lower extremities. There is moderate amount of tenderness to palpation directly over lumbar spine your incision and in paravertebral regions. None tender to palpation throughout rest of exam. Patient has limited range of motion in bilateral hips and flexion extension secondary to referred stiffness and pain in the low back. Limited range of motion in left ankle and dorsi/plantar flexion secondary to weakness. Full range of motion throughout right knee in flexion/extension and ankle in dorsiflexion/plantar flexion. 4-/5 in all major motor groups in left lower extremity. 4/5 in all major motor groups in right lower extremity. Radial pulses intact, 2+ bilaterally. Cap refill under 3 seconds in digits of upper extremities. Negative Homans bilaterally. - Labs CBC & Chem 7: 11/18/23 07:15 11/18/23 07:15 Labs: Abnormal Lab Results - Last 24 Hours (Table) 11/18/23 Range/Units 07:15 WBC 22.6 H (3.8-10.6) k/uL Assessment and Plan Assessment: 1. L4-5 SPONDYLOSIS WITH SEVERE STENOSISS 2. 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 LE WEAKNESS 4. NEUROGENIC CLAUDICATION 5. LE PARESTHESIAS 6. LOW BACK PAIN - Postoperative day 1 status post L4-S1 decompression and fusion Plan: 1. L4-5 SPONDYLOSIS WITH SEVERE STENOSISS; L5-S1 SPONDYLOLYSIS WITH GRADE I SPONDYLOLISTHESIS WITH SEVERE STENOSIS; LE WEAKNESS; NEUROGENIC CLAUDICATION; LE PARESTHESIAS; LOW BACK PAIN - surgery performed yesterday, , 11/17/2023L4-S1 decompression and fusion. Due to the dural tear during surgery, and patient having headache since surgery, patient has been lying supine. head of bed elevated to 15 degrees above supine. Pain medication as needed. Continue with GI meds. Maintain drain at this time. Dressing appears to be clean, dry, intact. Assess dressing daily. Every several hours may move head of bed up 10 or so as long as patient does not have worsening headache. We will continue to palpation during stay in hospital. Discharge planning pending 2. Appreciate medical management 3. Pain management - Tylenol; [place]; Flexeril; gabapentin 4. GI prophylaxis - senna; milk of magnesia 5. DVT prophylaxis - mechanical 6. PT/OT - weight bearing as tolerated with walker and brace on while up and about. 7. Encourage incentive spirometer use 8. Discharge planning - pending Time with Patient: Less than 30
--- NOTE | 2023-11-18 13:46 | CT ---
EXAMINATION TYPE: CT lumbar spine wo con DATE OF EXAM: 11/18/2023 12:12 PM COMPARISON: 10/08/2023 HISTORY: S/P 4-pelvis decompr fusion CT DLP: 965.6 mGycm Automated exposure control for dose reduction was used. Unenhanced CT of the lumbar spine was performed. Bone and soft tissue window settings are submitted as well as coronal and sagittal reconstructions. Findings: There is recent surgery with laminectomy and intradisc and posterior metallic fusion of L4-S1. There is moderate soft tissue gas in the subcutaneous tunnel tissues and surgical skin giulia indicating r ecent surgery. There is a surgical drain entering the right back and terminating in the surgical bed posterior to the thecal sac in the epidural space. There are no discrete soft tissue fluid collections are abscesses. The vertebral segments are normal in height and alignment and there is no fracture or subluxation. Sacrum and SI joints are normal. IMPRESSION: 1. Postsurgical changes of recent wide laminectomy and intradisc and posterior metallic fusion of L3 -S1. 2. Lumbar vertebral segments are normal in height and alignment there is no fracture or subluxation.
[2023-11-18] MEDS: hydrOXYzine HCL 25 MG TAB PO PRN (17:22)
[2023-11-18] MEDS: KETOROLAC 15 MG/ML 1 ML VIAL IVP SCH (18:16)
[2023-11-19 07:41] LABS: HCT 35.7 % (34.0-46.0); HGB 11.4 gm/dL (11.4-16.0); MCH 30.9 pg (25.0-35.0); MCV 96.6 fL (80.0-100.0); Mean Platelet Volume 7.6; Platelet Count 301 k/uL (150-450); RBC 3.69 m/uL (3.80-5.40); RDW 13.7 % (11.5-15.5); WBC 18.9 k/uL (3.8-10.6)
[2023-11-19 08:01] LABS: African American GFR (CKD) >90 (>60 ml/min/1.73 sqM); Anion Gap 2 mmol/L; Blood Urea Nitrogen 16 mg/dL (7-17); Calcium 8.8 mg/dL (8.4-10.2); Carbon Dioxide 30 mmol/L (22-30); Chloride 105 mmol/L (98-107); Glucose 121 mg/dL (74-99); Non-African American GFR(CKD) >90 (>60 ml/min/1.73 sqM); Sodium 137 mmol/L (137-145)
--- NOTE | 2023-11-19 09:50 | P.PN ---
Subjective Progress Note Date: 11/19/23 Principal diagnosis: Status post L4-S1 posterior lateral decompression and fusion Patient was examined today at bedside, she is resting in her hospital bed. The head of the bed is to about 45 degrees. Urinary catheter remains in place, Hemovac drain remains in place. She denies any severe headaches or vision changes at this time. She feels that the discomfort in the low back is also improved. She is eager to get up out of bed and sit in the chair and do some walking today if possible. She denies any headaches, lightheadedness, chest pain or shortness of breath. Objective - Vital Signs Vital signs: Vital Signs Temp 98.1 F 11/19/23 07:47 Pulse 70 11/19/23 09:04 Resp 20 11/19/23 07:47 BP 87/49 11/19/23 09:00 Pulse Ox 98 11/19/23 08:49 FiO2 Intake & Output 11/18/23 11/19/23 11/19/23 18:59 06:59 18:59 Intake Total 180 Output Total 5120 1960 Balance -4940 -1960 Intake: Oral 180 Output: Drainage 320 160 Back 320 160 Urine 4800 1800 Other: Voiding Method Indwelling Catheter # Voids 2 - Exam Gen: AOx3, NAD VSS stable at this time Integument: Postop dressing is in good position and condition Palpation: Mild tenderness with palpation noted to the lower lumbar spine ROM: Full range of motion in all major muscle groups of the bilateral upper and lower extremities Sensory Exam: Senory exam to light touch is intact C5-T1 Senosry exam to light touch is intact L2-S1 Motor: 5/5 strength appreciated in the bilateral upper extremities with shoulder elevation, shoulder abduction, elbow extension, elbow flexion, 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, 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, 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-/5 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 appreciated in the bilateral lower extremities with hip flexion, knee extension, knee flexion, plantarflexion, dorsiflexion, EHL, FHL Reflexes: 2/4 in all UE and LE Negative Keara's, Babinski, clonus bilaterally - Labs CBC & Chem 7: 11/19/23 06:57 11/19/23 06:57 Labs: Abnormal Lab Results - Last 24 Hours (Table) 11/18/23 11/19/23 11/19/23 Range/Units 07:15 06:57 06:57 WBC 18.9 H (3.8-10.6) k/uL RBC 3.69 L (3.80-5.40) m/uL Glucose 136 H 121 H (74-99) mg/dL Assessment and Plan Assessment: Postoperative day #2 status post L4-S1 posterior lateral decompression and fusion Plan: Pain control, continue trying to use more oral versus IV medication at this time DVT prophylaxis, heparin 5000 units every 12 hours Activity level restrictions were discussed with both the patient and nursing today. I would like to continue to elevate the head of the bed 5 to 10 degrees every 30 to 45 minutes. If patient's is able to get to sitting upright with no worsening headaches okay to move to sitting in chair. Recommending the use of a walker with transfers at this time. Would like to keep Hemovac drain in place at this time, I anticipate output will increase slightly with increase in movement. Hopeful to remove within the next 24-48 hours pending output. Plan for dressing change at that time Recommend walker at all times with transferring and ambulation Encourage incentive spirometer Decreasing Decadron to 4 mg every 6 hours, will continue to titrate down pending symptoms If patient is able to transfer to chair today and remains asymptomatic with headaches, okay to remove urinary catheter Other medical specialty recommendations appreciated Continue to follow during hospital stay Time with Patient: Less than 30
--- NOTE | 2023-11-19 12:02 | P.PN ---
Subjective Progress Note Date: 11/19/23 Subjective: Patient seen and examined at bedside. No acute events overnight. Claims that she is feeling a lot better today. Still has significant back pain, Cano catheter in place. Has not had any bowel movements yet. Has not gotten out of the bed. Eating and drinking well. Pertinent positives and negatives as discussed above, a complete review of systems was performed and all other systems are negative. Vitals Signs Reviewed. General: Nontoxic, no distress, appears at stated age Derm: Warm, dry, back dressing not observed, Hemovac in place Head: Atraumatic, normocephalic, symmetric Eyes: EOMI, no lid lag, anicteric sclera Mouth: No lip lesion, mucus membranes moist Cardiovascular: S1S2 reg, no murmur Lungs: CTA bilateral, no rhonchi, no rales, no accessory muscle use Abdominal: Soft, nontender to palpation, no guarding, no appreciable organomegaly Ext: No gross muscle atrophy, no edema, no contractures Neuro: CN II-XI grossly intact, no focal neuro deficits Psych: Alert, oriented, appropriate affect Data Reviewed Today: Pertinent Labs: WBC 18.9, hemoglobin 11.4, creatinine 0.63 Imaging: No new imaging Assessment and Plan: Back pain status post lumbar spine surgery Leukocytosis, anticipated outcome of surgery Headache, possible Spinal, resolved Abdominal pain, resolved Probable sleep apnea -Pain control, IV Decadron 4 mg every 6 hours, oral [place] as needed, IV Dilaudid as needed -Ortho surgery note reviewed, okay to remove urinary catheter if able to tra nsfer to chair today Subcu heparin for DVT prophylaxis Senna as needed -Needs outpatient sleep study, Dr. Mercedes's name is added to D/C tab COPD without exacerbation -Duoneb QID, Albuterol every 2 hours as needed History of stroke -Resume aspirin when okay with orthopedic surgery PTSD - avoid combining benzo with pain mediations -Continue atarax 25 mg PO TID for anxiety Dyslipidemia -Atorvastatin 20 mg at night nicotine dependency -Cessation Thank you for allowing us to participate in the care of this pleasant patient. Do not hesitate to contact us with questions. Someone can be reached from the [facility] hospitalist group all hours of the day at [phone] or via perfect serve. Objective - Vital Signs Vital signs: Vital Signs Temp 98.1 F 11/19/23 07:47 Pulse 70 11/19/23 10:20 Resp 20 11/19/23 07:47 BP 105/61 11/19/23 10:20 Pulse Ox 98 11/19/23 08:49 FiO2 Intake & Output 11/18/23 11/19/23 11/19/23 18:59 06:59 18:59 Intake Total 180 Output Total 5120 1960 Balance -4939 -1959 Intake: Oral 180 Output: Drainage 320 160 Back 320 160 Urine 4800 1800 Other: Voiding Method Indwelling Catheter Indwelling Catheter # Voids 2 - Labs CBC & Chem 7: 11/19/23 06:57 11/19/23 06:57 Labs: Abnormal Lab Results - Last 24 Hours (Table) 11/19/23 11/19/23 Range/Units 06:57 06:57 WBC 18.9 H (3.8-10.6) k/uL RBC 3.69 L (3.80-5.40) m/uL Glucose 121 H (74-99) mg/dL
[2023-11-19] MEDS: DEXAMETHASONE SOD PHOSPHATE 4 MG/ML 1 ML VIAL IVP SCH (12:27)
[2023-11-19] MEDS: HYDROcodone/APAP 5-325MG 1 EACH TAB PO PRN (12:27)
[2023-11-19] MEDS: HEPARIN SODIUM,PORCINE 5,000 UNIT/ML 1 ML VIAL SQ SCH (20:57)
[2023-11-20 07:30] LABS: Basophils % (A) 0 %; Eosinophils % (A) 0 %; HCT 34.5 % (34.0-46.0); HGB 11.1 gm/dL (11.4-16.0); Lymphocytes # (A) 1.4 k/uL (1.0-4.8); Lymphocytes % (A) 9 %; MCH 30.9 pg (25.0-35.0); MCHC 32.2 g/dL (31.0-37.0); MCV 96.1 fL (80.0-100.0); Mean Platelet Volume 7.7; Monocytes # (A) 0.8 k/uL (0-1.0); Monocytes % (A) 5 %; Neutrophils # (A) 13.8 k/uL (1.3-7.7); Neutrophils % (A) 86 %; Platelet Count 300 k/uL (150-450); RBC 3.59 m/uL (3.80-5.40); RDW 13.7 % (11.5-15.5); WBC 16.1 k/uL (3.8-10.6)
[2023-11-20] MEDS: HYDROcodone/APAP 10-325MG 1 EACH TAB PO PRN (08:11)
--- NOTE | 2023-11-20 10:59 | P.PN ---
Subjective Progress Note Date: 11/20/23 Principal diagnosis: Status post L4-S1 posterior lateral decompression and fusion Patient was examined today at bedside, she is resting in her hospital bed. Patient feels she is doing a lot better today. She has been ambulating throughout the room with minimal difficulty at this time. Urinary catheter was removed, she has been urinating with no issues. She denies any headaches, lightheadedness, chest pain or shortness of breath. Objective - Vital Signs Vital signs: Vital Signs Temp 98.1 F 11/20/23 07:27 Pulse 72 11/20/23 08:43 Resp 18 11/20/23 07:27 BP 129/77 11/20/23 07:27 Pulse Ox 97 11/20/23 08:35 FiO2 Intake & Output 11/19/23 11/20/23 11/20/23 18:59 06:59 18:59 Output Total 1090 220 Balance -1090 -220 Output: Drainage 90 220 Back 90 220 Urine 1000 Other: Voiding Method Indwelling Catheter Toilet Toilet # Voids 4 - Exam Gen: AOx3, NAD VSS stable at this time Integument: Postop dressing is in good position and condition Palpation: Mild tenderness with palpation noted to the lower lumbar spine ROM: Full range of motion in all major muscle groups of the bilateral upper and lower extremities Sensory Exam: Senory exam to light touch is intact C5-T1 Senosry exam to light touch is intact L2-S1 Motor: 5/5 strength appreciated in the bilateral upper extremities with shoulder elevation, shoulder abduction, elbow extension, elbow flexion, 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, 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, 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 appreciated in the bilateral lower extremities with hip flexion, knee extension, knee flexion, plantarflexion, dorsiflexion, EHL, FHL Reflexes: 2/4 in all UE and LE Negative Keara's, Babinski, clonus bilaterally - Labs CBC & Chem 7: 11/20/23 06:50 11/19/23 06:57 Labs: Abnormal Lab Results - Last 24 Hours (Table) 11/20/23 Range/Units 06:50 WBC 16.1 H (3.8-10.6) k/uL RBC 3.59 L (3.80-5.40) m/uL Hgb 11.1 L (11.4-16.0) gm/dL Neutrophils # 13.8 H (1.3-7.7) k/uL Assessment and Plan Assessment: Postoperative day #3 status post L4-S1 posterior lateral decompression and fusion Plan: Pain control, continue oral medications DVT prophylaxis, heparin 5000 units every 12 hours Weight-bear as tolerated with walker Will continue to monitor Hemovac, the output remains too high to remove. The dressing is in good position and condition at this time Encourage incentive spirometer Decreasing Decadron to 2 mg every 6 hours, will continue to titrate down pending symptoms Other medical specialty recommendations appreciated Hopeful discharge to home with home health care on 11/21/2023 Time with Patient: Less than 30
[2023-11-20] MEDS: DEXAMETHASONE SOD PHOSPHATE 4 MG/ML 1 ML VIAL IVP SCH (11:49)
--- NOTE | 2023-11-20 13:12 | P.PN ---
Subjective Progress Note Date: 11/20/23 Subjective: Patient seen and examined at bedside. No acute events overnight. Has been able to get out of the bed on her own. Urinary catheter is taken out. Able to urinate without any issues. Still has significant back pain. Pertinent positives and negatives as discussed above, a complete review of systems was performed and all other systems are negative. Vitals Signs Reviewed. General: Nontoxic, no distress, appears at stated age Derm: Warm, dry, back dressing not observed, Hemovac in place Head: Atraumatic, normocephalic, symmetric Eyes: EOMI, no lid lag, anicteric sclera Mouth: No lip lesion, mucus membranes moist Cardiovascular: S1S2 reg, no murmur Lungs: CTA bilateral, no rhonchi, no rales, no accessory muscle use Abdominal: Soft, nontender to palpation, no guarding, no appreciable organomegaly Ext: No gross muscle atrophy, no edema, no contractures Neuro: CN II-XI grossly intact, no focal neuro deficits Psych: Alert, oriented, appropriate affect Data Reviewed Today: Pertinent Labs: WBC 16.1, hemoglobin 11.1 Imaging: No new imaging Assessment and Plan: Back pain status post lumbar spine surgery Leukocytosis, anticipated outcome of surgery, improving Headache, possible Spinal, resolved Abdominal pain, resolved Probable sleep apnea -Pain control: oral [employer] as needed, IV Dilaudid as needed, gabapentin 300 3 times daily, Flexeril 5 3 times daily as needed -Ortho surgery note reviewed, likely discharge tomorrow, Decadron 8 decreased to 2 mg every 6 hours Subcu heparin for DVT prophylaxis Senna as needed -Needs outpatient sleep study, Dr. Mercedes's name is added to D/C tab COPD without exacerbation -Duoneb QID, Albuterol every 2 hours as needed History of stroke -Resume aspirin when okay with orthopedic surgery PTSD - avoid combining benzo with pain mediations -Continue atarax 25 mg PO TID for anxiety Dyslipidemia -Atorvastatin 20 mg at night nicotine dependency -Cessation Thank you for allowing us to participate in the care of this pleasant patient. Do not hesitate to contact us with questions. Someone can be reached from the [facility] hospitalist group all hours of the day at [phone] or via perfect serve. Objective - Vital Signs Vital signs: Vital Signs Temp 98.1 F 11/20/23 07:27 Pulse 72 03/24/24 08:43 Resp 18 11/20/23 07:27 BP 129/77 11/20/23 07:27 Pulse Ox 97 11/20/23 08:35 FiO2 Intake & Output 11/19/23 11/20/23 11/20/23 18:59 06:59 18:59 Output Total 1090 220 Balance -1090 -220 Output: Drainage 90 220 Back 90 220 Urine 1000 Other: Voiding Method Indwelling Catheter Toilet Toilet # Voids 4 - Labs CBC & Chem 7: 11/20/23 06:50 11/19/23 06:57 Labs: Abnormal Lab Results - Last 24 Hours (Table) 11/20/23 Range/Units 06:50 WBC 16.1 H (3.8-10.6) k/uL RBC 3.59 L (3.80-5.40) m/uL Hgb 11.1 L (11.4-16.0) gm/dL Neutrophils # 13.8 H (1.3-7.7) k/uL
[2023-11-21 09:05] VITALS: BP 156/85; PULSE 61; RESP 16; TEMP 98.3
--- NOTE | 2023-11-21 09:33 | P.PN ---
Subjective Progress Note Date: 11/21/23 Principal diagnosis: 1. L4-5 SPONDYLOSIS WITH SEVERE STENOSISS 2. 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 LE WEAKNESS 4. NEUROGENIC CLAUDICATION 5. LE PARESTHESIAS 6. LOW BACK PAIN Patient was seen at bedside this morning lying the semirecumbent position with dressing present over lumbar spine and drain in place. Patient says her headac hes have subsided. Patient says she has been passing more gas duke the last day,. but has still not had a bowel movement. Patient says she has urinated without issue since chu was removed. Patient is wondering when she'll be able to sit up. Patient says she is currently having some pain to the low back near the incision as well as bilat hips. Patient notes some weakness to the left lower extremity which was present prior to surgery as well. Patient hoping to go home today. Patient denies chest pain, fever, shortness breath, change in vision, loss of bowel/bladder control. Objective - Vital Signs Vital signs: Vital Signs Temp 98.3 F 11/21/23 08:00 Pulse 60 11/21/23 08:30 Resp 16 11/21/23 08:00 BP 156/85 11/21/23 08:00 Pulse Ox 99 11/21/23 08:00 FiO2 Intake & Output 11/20/23 11/21/23 11/21/23 18:59 06:59 18:59 Output Total 205 100 Balance -205 -100 Output: Drainage 205 100 Back 205 100 Other: Voiding Method Toilet Toilet # Voids 3 2 - Exam Drain ad dressing in place over lumbar spine. Drain removed at bedside. dressing removed. giulia appear to be well aligned and intact. Negative for any active drainage. Some swelling present. Sensation is equal, symmetric, bilat intact throughout the upper and lower extremities. There is moderate amount of tenderness to palpation directly over lumbar spine your incision and in paravertebral regions. Non-tender to palpation throughout rest of exam. Patien t has limited range of motion in bilateral hips in flexion/extension secondary to referred stiffness and pain in the low back. Limited range of motion in left ankle and dorsi/plantar flexion secondary to weakness. Full range of motion throughout right knee in flexion/extension and ankle in dorsiflexion/plantar flexion. 4-/5 in all major motor groups in left lower extremity. 4/5 in all major motor groups in right lower extremity. Radial pulses intact, 2+ bilaterally. Cap refill under 3 seconds in digits of upper extremities. Negative Homans bilaterally. - Labs CBC & Chem 7: 11/20/23 06:50 11/19/23 06:57 Assessment and Plan Assessment: 1. L4-5 SPONDYLOSIS WITH SEVERE STENOSISS 2. 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 LE WEAKNESS 4. NEUROGENIC CLAUDICATION 5. LE PARESTHESIAS 6. LOW BACK PAIN - Postoperative day 4 status post L4-S1 decompression and fusion Plan: 1. 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 Drain removed at bedside this morning. Dressing removed and new dressing placed over incision. Giulia well aligned and intact. Weight bearing as tolerated with walker. Pain medication as needed. discharge ho me today with home care 2. Appreciate medical management 3. Pain management - Tylenol; [place]; Flexeril; gabapentin 4. GI prophylaxis - senna; milk of magnesia 5. DVT prophylaxis - heparin 6. PT/OT - weight bearing as tolerated with walker and brace on while up and about. 7. Encourage incentive spirometer use 8. Discharge planning - home today with home care Time with Patient: Less than 30
--- NOTE | 2023-11-21 09:49 | P.DS ---
Providers Date of admission: 11/17/23 14:50 Expected date of discharge: 11/21/23 Attending physician: Aldo Maddox DO Consults: 11/17/23 16:36 Consult Physician Routine Consulting Provider: Carolina Alarcon Consult Reason/Comments: medical managment. Do you want consulting provider notified?: Yes Primary care physician: Lyssa [facility] Course: Date of admission: 11/17/2023 Date of discharge: 11/21/2023 Admission diagnosis: 1. L4-5 SPONDYLOSIS WITH SEVERE STENOSISS 2. 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 LE WEAKNESS 4. NEUROGENIC CLAUDICATION 5. LE PARESTHESIAS 6. LOW BACK PAIN Discharge diagnosis: Same Attending physician: Dr. Maddox Surgical procedures: L4-S1 decompression and fusion Brief history: Patient is a 53-year-old female with a history of L4-5 spondylosis with stenosis; L5-S1 spondylosis with grade 1 spondylolisthesis with severe stenosis; lower extremity weakness; lower extremity paresthesias; low back pain. At this point patient has failed conservative treatment measures and has opted to proceed with a elective L4-S1 decompression fusion. Hospital course: Details of patient's surgery can be found in operative report. Patient tolerated the procedure well and was subsequently transported to orthopedic floor. Patient's orthopeidc and medical care was provided daily. Patient had daily laboratory tests performed for evaluation of overall blood counts. Patient had daily physical therapy to include strengthening range of motion as well as education with walker ambulation. Patient was treated with heparin for their postoperative DVT prophylaxis during their inpatient stay. Patient was noted to have a relatively uneventful postoperative course. Patient reported satisfactory pain control with oral pain medications by postoperative day 4. Patient showed satisfactory progress with physical therapy. Patient moved steadily through the program and had no difficulty meeting the goals by postoperative day 4. Given patient's otherwise satisfactory course and having met physical therapy goals, plan is to discharge patient home with home care on postoperative day 4. Discharge condition/disposition: Patient will be discharged home with home care in stable condition. Discharge medications: Instructions are given on resumption of patient's normal daily medications per primary care recommendation, in addition patient will be prescribed percocet; Flexeril; Duricef; senna; MiraLAX. Spine Discharge and Recovery Instructions Date of Surgery: 11/17/2023 Diagnosis: 1. L4-5 SPONDYLOSIS WITH SEVERE STENOSISS 2. 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 LE WEAKNESS 4. NEUROGENIC CLAUDICATION 5. LE PARESTHESIAS 6. LOW BACK PAIN Procedure: L4-S1 decompression and fusion Medications: See medication list All medication refills should be obtained through your primary care doctor or your clinic spine surgeon. Please discuss prescription refills at your follow up appointment. Do not call the hospital for medication refills. Dressing: Leave your dressing in place for a total of 5 days post operatively. Then you may remove your dressing and leave open to air. Keep the area clean and if not able to keep area clean, then cover with sterile gauze and tape. Showering: You may shower 3 days after your procedure allowing soap and water to run over incision. Do not scrub. Do not soak. Blot dry. Follow up: Please confirm a follow up appointment with your surgeon 3 weeks post operatively. Please make an appointment to follow up with your PCP in 1-2 weeks after surgery for evaluation 3 phase, 3-week plan POST OP WEEKS 1-3 1. Lifting/carrying/pushing/pulling limited to less than 5 pounds. 2. Do not sit for longer than 15 minutes at one time. Get up and walk around. Prolonged sitting is NOT advised. If you lay down, see if you can tolerate laying down on you front (belly side) 3. Walk for periods of 15 minutes = 1 mile but no longer; do it multiple times times each day. 4. Ice your low back after activity. POST OP WEEKS 3-6 1. Lifting limited to less than 20 pounds. 2. Do not sit for longer than 30 minutes at a time. Frequently change positions. Use a sit-to stand workstation or take frequent breaks from sitting if you have returned to work. 3. Walk for 30 minutes each day. If possible, do these three or more times a day POST OP WEEKS 6+ At your 6-week appointment we will give you a physical therapy referral to focus on a core stabilization and strengthening program. You should also work on leg & buttock strengthening, hamstring & quadriceps stretching, and continue a low impact aerobic activity program such as swimming, walking, or riding a stationary bicycle. During the initial 6 weeks after your surgery, you are at the highest risk of re-injuring your spine. You should generally avoid BLTs (bending, lifting and twisting combination motions) and follow the above guidelines to reduce the chance of reinjury. You can anticipate post op appointments in our office at approximately 3 weeks and 6 weeks after your surgery. INCISION CARE: If your incision is not draining you do NOT need to cover it with a dressing. Keep your incision clean, dry and intact. In most cases, we apply skin glue, giulia or sutures to the incision at the time of surgery. This will be like a crust or have the appearance of a scab and will fall off in time on its own. The stitches or giulia need to be removed at 3 weeks post op appointment. You may begin to shower 3 days after surgery (this allows the glue to tillman well). However, please avoid scrubbing the incision site or peeling off any of the skin glue. This will ensure optimal healing of your incision. Also, during this time avoid soaking the incision area in water - this includes swimming pools, hot tubs or baths. No ointments, lotions or oils on the incision until your surgeon allows. Leave giulia, sutures or glue in place. Neurological dysfunction that comes on suddenly can also be a sign of a stroke. Below some common symptoms of a stroke are listed: B - balance difficulty such as sudden onset walking or leaning to one side - NEW E - eye problem such as sudden double vision or trouble seeing on one side - NEW F - Facial weakness or numbness on one side - NEW A - Arm or leg weakness or numbness on one side - NEW S - Slurred speech or difficulty with word finding - NEW T - Time is BRAIN! Call 911 as soon as you recognize these symptoms Diet: Consume a regular diet rich in vegetables and lean protein such as chicken or fish. You should consume in a ratio of approximately 20% fats|40% carbohydrates|40%protein. Vegetables, sweet potatoes, brown rice or quinoa are examples of good carbohydrates. Chips, white bread, cookies and sweets/sugar are examples of bad carbohydrates. Limit your bad carbs, go wild with good carbs. 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 (1) Get Active. Physical activity can help people lose weight, control high blood pressure and cholesterol, feel emotionally better, and sleep better. (2) Control Cholesterol. Avoid a diet high in saturated fat, trans fat, & cholesterol. Limit whole milk & cream, ice cream, butter, egg yolks, processed meats (like sausage and hot dogs), and fatty meats. Choose healthy foods that are low in saturated fat, trans fat and cholesterol which include: Fruits and vegetables, fiber rich grain products (like whole grain pasta and brown rice), lean meat such as chicken, fish, nuts, seeds, and legumes. (3) Eat Better. Eat small portions. Shop at the grocery with a list and do not stray from it. Tips for a healthy diet include: Limit sodium intake to less than 1500mg daily, avoid prepackaged, processed, and fast foods, choose a diet rich in fruits, vegetables, and whole grain, high fiber foods, and limit saturated & cholesterol in your diet. (4) Manage Blood Pressure. If you have high blood pressure, you should have a cuff at home so that you can check your blood pressure regularly. Be sure you have a good cuff. An arm one is generally better than a wrist one. Bring the cuff to a doctor's appointment to validate that the measurements that your cuff are taking are accurate. Take your blood pressure twice daily when you are sitting down and relaxing. Record the numbers in a log and bring this log with y ou to your doctors' appointments. (5) Lose Weight if your BMI is above 25. A healthy BMI is between 19-25. To calculate Your BMI, you may use a Standard BMI Calculator on the NIH BMI website: <www.nhlbi.nih.gov/guidelines/obesity/BMI/bmicalc.htm>. Weigh oneself daily. If you are overweight, set a goal to lose weight. A pound a week loss if needed is a good target. (6) Reduce Blood Sugar. Limit foods and liquids with "added sugars." (Added sugars include sucrose, fructose, glucose, maltose, dextrose, high fructose corn syrup, corn syrup, concentrated fruit juice and honey). (7) Stop Smoking. If you smoke, quitting smoking is one of the best things that you can do for your health. Smoking increases your risk of heart attack, stroke, and peripheral vascular disease, which is a build-up of plaque in your arteries. Please discard all the cigarettes and lighters in your house. Have a plan for what you will do when you have the urge to smoke. Direct and second- hand smoke shortens your life as well as the lives of your family, friends and others around you. For your health and the health of those around you, please consider quitting! Proper Bending Body Mechanics: Maintain a wide stance with one foot slightly in front of the other. Keep your back straight. Bend utilizing the strength in your hips and knees. Do not bend at the waist. Maintain the lifted object at your waist-level close to your body. Avoid lifting weight that causes immediately pain or pain anywhere in the body afterwards. Smoking/Nicotine If there was ever one thing that you could do to increase your overall health, decrease your risk of cardiovascular problems by about 39% the second you make the choice, it is to STOP SMOKING. Your body's most instant gratification is the second you stop smoking. We have all heard the studies, read the articles but it is true, smoking is extremely bad for your overall health, and moreover it is detrimental to your bone health. Nicotine, IN ANY FORM, kills bone cells, prevents your body from healing fractures, and significantly prolongs healing after surgery. In spine surgery specifically, it increases your risk of not healing your bones to create a fusion and increases your risk of having a revision surgery due to this up to 60%. I know it is hard. I know it feels impossible. But there are ways. Take control of your life. We are here to help you through it. And when you are ready, ask us and we can direct you to help if you desire. Use the START Plan to Quit Smoking (please visit the Helpguide.org website listed below for more information): S = Set a quit date. Choose a date within the next 2 weeks, so you have enough time to prepare wi thout losing your motivation to quit. If you mainly smoke at work, quit on the weekend, so you have a few days to adjust to the change. T = Tell family, friends, and co-workers that you plan to quit. Let your friends and family in on your plan to quit smoking and tell them you need their support and encouragement to stop. Look for a quit jesus alberto who wants to stop smoking as well. You can help each other get through the rough times. A = Anticipate and plan for the challenges you'll face while quitting. Most people who begin smoking again do so within the first 3 months. You can help yourself make it through by preparing ahead for common challenges, such as nicotine withdrawal and cigarette cravings. R = Remove cigarettes and other tobacco products from your home, car, and work. Throw away all your cigarettes (no emergency pack!), lighters, ashtrays, and matches. Wash your clothes and freshen up anything that smells like smoke. Shampoo your car, clean your drapes and carpet, and steam your furniture. T = Talk to your doctor about getting help to quit. Your doctor can prescribe medication to help with withdrawal and suggest other alternatives. If you can't see a doctor, you can get many products over the counter at your local pharmacy or grocery store, including the nicotine patch, nicotine lozenges, and nicotine gum. Resources for Quitting Smoking: <https://www.[place].gov/documents/[facility]/Quit_Tobacco_Resources_for_patients_313 480_7.pdf> Supplementation: Take recommended dosages of Vitamin D and Calcium to help fortify your bones and help them to heal. See your health maintenance packet for dosages and recommended levels. DVT/VTE prophylaxis: You will be given compression stockings from the hospital. Wear these daily for the first two weeks after surgery. You may take them off at night. You may be prescribed a medication to help thin your blood. Take this as directed. If you are not prescribed this medication, early and frequent ambulation has been shown to be the best prophylaxis to deep vein thrombosis and sequelae related to this event. Assessment: 1. L4-5 SPONDYLOSIS WITH SEVERE STENOSISS 2. 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 LE WEAKNESS 4. NEUROGENIC CLAUDICATION 5. LE PARESTHESIAS 6. LOW BACK PAIN Procedures: L4-S1 decompression and fusion Patient Condition at Discharge: Good Plan - Discharge Summary Discharge Rx Participant: Yes New Discharge Prescriptions: New cefaDROXiL [Duricef] 500 mg PO Q12HR 5 Days #10 cap Cyclobenzaprine [Flexeril] 5 mg PO TID #21 tablet Sennosides/Docusate Sodium [Senna Plus 8.6-50 mg Softgel] 1 each PO DAILY #20 capsule polyethylene glycoL 3350 [Miralax] 17 gm PO DAILY #3 packet oxyCODONE-APAP 5-325MG [Percocet 5-325 mg] 1 tab PO Q6HR PRN #28 tab PRN Reason: Pain No Action Atorvastatin Calcium 20 mg PO HS traZODone HCL [Desyrel] 50 mg PO HS Gabapentin 300 mg PO TID Albuterol Sulfate [Ventolin HFA] 1 - 2 puff INHALATION Q6H PRN PRN Reason: Dyspnea Aspirin [Adult Low Dose Aspirin EC] 81 mg PO DAILY diazePAM 2 mg PO DAILY PRN PRN Reason: STRESS FLUoxetine HCL [PROzac] 40 mg PO DAILY Cholecalciferol [Vitamin D3 (25 Mcg = 1000 Iu)] 25 mcg PO DAILY Discharge Medication List Aspirin [Adult Low Dose Aspirin EC] 81 mg PO DAILY 04/07/23 [History] Atorvastatin Calcium 20 mg PO HS 04/07/23 [History] FLUoxetine HCL [PROzac] 40 mg PO DAILY 09/19/23 [History] Gabapentin 300 mg PO TID 09/19/23 [History] diazePAM 2 mg PO DAILY PRN 09/19/23 [History] traZODone HCL [Desyrel] 50 mg PO HS 09/19/23 [History] Albuterol Sulfate [Ventolin HFA] 1 - 2 puff INHALATION Q6H PRN 11/16/23 [History] Cholecalciferol [Vitamin D3 (25 Mcg = 1000 Iu)] 25 mcg PO DAILY 11/16/23 [History] Cyclobenzaprine [Flexeril] 5 mg PO TID #21 tablet 11/21/23 [Rx] Sennosides/Docusate Sodium [Senna Plus 8.6-50 mg Softgel] 1 each PO DAILY #20 capsule 11/21/23 [Rx] cefaDROXiL [Duricef] 500 mg PO Q12HR 5 Days #10 cap 11/21/23 [Rx] oxyCODONE-APAP 5-325MG [Percocet 5-325 mg] 1 tab PO Q6HR PRN #28 tab 11/21/23 [Rx] polyethylene glycoL 3350 [Miralax] 17 gm PO DAILY #3 packet 11/21/23 [Rx] Follow up Appointment(s)/Referral(s): Tracey Mercedes MD [STAFF PHYSICIAN] - 1 Week (for sleep study) Aldo Maddox DO [Doctor of Osteopathic Medicine] - 10 Days Activity/Diet/Wound Care/Special Instructions: Spine Discharge and Recovery Instructions Date of Surgery: 11/17/2023 Diagnosis: 1. L4-5 SPONDYLOSIS WITH SEVERE STENOSISS 2. 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 LE WEAKNESS 4. NEUROGENIC CLAUDICATION 5. LE PARESTHESIAS 6. LOW BACK PAIN Procedure: L4-S1 decompression and fusion Medications: See medication list All medication refills should be obtained through your primary care doctor or your clinic spine surgeon. Please discuss prescription refills at your follow up appointment. Do not call the hospital for medication refills. Dressing: Leave your dressing in place for a total of 5 days post operatively. Then you may remove your dressing and leave open to air. Keep the area clean and if not able to keep area clean, then cover with sterile gauze and tape. Showering: You may shower 3 days after your procedure allowing soap and water to run over incision. Do not scrub. Do not soak. Blot dry. Follow up: Please confirm a follow up appointment with your surgeon 3 weeks post operatively. Please make an appointment to follow up with your PCP in 1-2 weeks after surgery for evaluation 3 phase, 3-week plan POST OP WEEKS 1-3 1. Lifting/carrying/pushing/pulling limited to less than 5 pounds. 2. Do not sit for longer than 15 minutes at one time. Get up and walk around. Prolonged sitting is NOT advised. If you lay down, see if you can tolerate laying down on you front (belly side) 3. Walk for periods of 15 minutes = 1 mile but no longer; do it multiple times times each day. 4. Ice your low back after activity. POST OP WEEKS 3-6 1. Lifting limited to less than 20 pounds. 2. Do not sit for longer than 30 minutes at a time. Frequently change positions. Use a sit-to stand workstation or take frequent breaks from sitting if you have returned to work. 3. Walk for 30 minutes each day. If possible, do these three or more times a day POST OP WEEKS 6+ At your 6-week appointment we will give you a physical therapy referral to focus on a core stabilization and strengthening program. You should also work on leg & buttock strengthening, hamstring & quadriceps stretching, and continue a low impact aerobic activity program such as swimming, walking, or riding a stationary bicycle. During the initial 6 weeks after your surgery, you are at the highest risk of re-injuring your spine. You should generally avoid BLTs (bending, lifting and twisting combination motions) and follow the above guidelines to reduce the chance of reinjury. You can anticipate post op appointments in our office at approximately 3 weeks and 6 weeks after your surgery. INCISION CARE: If your incision is not draining you do NOT need to cover it with a dressing. Keep your incision clean, dry and intact. In most cases, we apply skin glue, giulia or sutures to the incision at the time of surgery. This will be like a crust or have the appearance of a scab and will fall off in time on its own. The stitches or giulia need to be removed at 3 weeks post op appointment. You may begin to shower 3 days after surgery (this allows the glue to tillman well). However, please avoid scrubbing the incision site or peeling off any of the skin glue. This will ensure optimal healing of your incision. Also, during this time avoid soaking the incision area in water - this includes swimming pools, hot tubs or baths. No ointments, lotions or oils on the incision until your surgeon allows. Leave giulia, sutures or glue in place. Neurological dysfunction that comes on suddenly can also be a sign of a stroke. Below some common symptoms of a stroke are listed: B - balance difficulty such as sudden onset walking or leaning to one side - NEW E - eye problem such as sudden double vision or trouble seeing on one side - NEW F - Facial weakness or numbness on one side - NEW A - Arm or leg weakness or numbness on one side - NEW S - Slurred speech or difficulty with word finding - NEW T - Time is BRAIN! Call 911 as soon as you recognize these symptoms Diet: Consume a regular diet rich in vegetables and lean protein such as chicken or fish. You should consume in a ratio of approximately 20% fats|40% carbohydrates|40%protein. Vegetables, sweet potatoes, brown rice or quinoa are examples of good carbohydrates. Chips, white bread, cookies and sweets/sugar are examples of bad carbohydrates. Limit your bad carbs, go wild with good carbs. 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 (1) Get Active. Physical activity can help people lose weight, control high blood pressure and cholesterol, feel emotionally better, and sleep better. (2) Control Cholesterol. Avoid a diet high in saturated fat, trans fat, & cholesterol. Limit whole milk & cream, ice cream, butter, egg yolks, processed meats (like sausage and hot dogs), and fatty meats. Choose healthy foods that are low in saturated fat, trans fat and cholesterol which include: Fruits and vegetables, fiber rich grain products (like whole grain pasta and brown rice), lean meat such as chicken, fish, nuts, seeds, and legumes. (3) Eat Better. Eat small portions. Shop at the grocery with a list and do not stray from it. Tips for a healthy diet include: Limit sodium intake to less than 1500mg daily, avoid prepackaged, processed, and fast foods, choose a diet rich in fruits, vegetables, and whole grain, high fiber foods, and limit saturated & cholesterol in your diet. (4) Manage Blood Pressure. If you have high blood pressure, you should have a cuff at home so that you can check your blood pressure regularly. Be sure you have a good cuff. An arm one is generally better than a wrist one. Bring the cuff to a doctor's appointment to validate that the measurements that your cuff are taking are accurate. Take your blood pressure twice daily when you are sitting down and relaxing. Record the numbers in a log and bring this log with you to your doctors' appointments. (5) Lose Weight if your BMI is above 25. A healthy BMI is between 19-25. To calculate Your BMI, you may use a Standard BMI Calculator on the NIH BMI website: <www.nhlbi.nih.gov/guidelines/obesity/BMI/bmicalc.htm>. Weigh oneself daily. If you are overweight, set a goal to lose weight. A pound a week loss if needed is a good target. (6) Reduce Blood Sugar. Limit foods and liquids with "added sugars." (Added sugars include sucrose, fructose, glucose, maltose, dextrose, high fructose corn syrup, corn syrup, concentrated fruit juice and honey). (7) Stop Smoking. If you smoke, quitting smoking is one of the best things t hat you can do for your health. Smoking increases your risk of heart attack, stroke, and peripheral vascular disease, which is a build-up of plaque in your arteries. Please discard all the cigarettes and lighters in your house. Have a plan for what you will do when you have the urge to smoke. Direct and second- hand smoke shortens your life as well as the lives of your family, friends and others around you. For your health and the health of those around you, please consider quitting! Proper Bending Body Mechanics: Maintain a wide stance with one foot slightly in front of the other. Keep your back straight. Bend utilizing the strength in your hips and knees. Do not bend at the waist. Maintain the lifted object at your waist-level close to your body. Avoid lifting weight that causes immediately pain or pain anywhere in the body afterwards. Smoking/Nicotine If there was ever one thing that you could do to increase your overall health, decrease your risk of cardiovascular problems by about 39% the second you make the choice, it is to STOP SMOKING. Your body's most instant gratification is the second you stop smoking. We have all heard the studies, read the articles but it is true, smoking is extremely bad for your overall health, and moreover it is detrimental to your bone health. Nicotine, IN ANY FORM, kills bone cells, prevents your body from healing fractures, and significantly prolongs healing after surgery. In spine surgery specifically, it increases your risk of not healing your bones to create a fusion and increases your risk of having a revision surgery due to this up to 60%. I know it is hard. I know it feels impossible. But there are ways. Take control of your life. We are here to help you through it. And when you are ready, ask us and we can direct you to help if you desire. Use the START Plan to Quit Smoking (please visit the [employer]gu[employer].org website listed below for more information): S = Set a quit date. Choose a date within the next 2 weeks, so you have enough time to prepare without losing your motivation to quit. If you mainly smoke at work, quit on the weekend, so you have a few days to adjust to the change. T = Tell family, friends, and co-workers that you plan to quit. Let your friends and family in on your plan to quit smoking and tell them you need their support and encouragement to stop. Look for a quit jesus alberto who wants to stop smoking as well. You can help each other get through the rough times. A = Anticipate and plan for the challenges you'll face while quitting. Most people who begin smoking again do so within the first 3 months. You can help yourself make it through by preparing ahead for common challenges, such as nicotine withdrawal and cigarette cravings. R = Remove cigarettes and other tobacco products from your home, car, and work. Throw away all your cigarettes (no emergency pack!), lighters, ashtrays, and matches. Wash your clothes and freshen up anything that smells like smoke. Shampoo your car, clean your drapes and carpet, and steam your furniture. T = Talk to your doctor about getting help to quit. Your doctor can prescribe medication to help with withdrawal and suggest other alternatives. If you can't see a doctor, you can get many products over the counter at your local pharmacy or grocery store, including the nicotine patch, nicotine lozenges, and nicotine gum. Resources for Quitting Smoking: <https://www.[place].gov/documents/[facility]/Quit_Tobacco_Resources_for_pati ents_313480_7.pdf> Supplementation: Take recommended dosages of Vitamin D and Calcium to help fortify your bones and help them to heal. See your health maintenance packet for dosages and re commended levels. DVT/VTE prophylaxis: You will be given compression stockings from the hospital. Wear these daily for the first two weeks after surgery. You may take them off at night. You may be prescribed a medication to help thin your blood. Take this as directed. If you are not prescribed this medication, early and frequent ambulation has been shown to be the best prophylaxis to deep vein thrombosis and sequelae related to this event. Discharge Disposition: HOME WITH HOME HEALTH SERVICES
--- NOTE | 2023-11-21 13:39 | P.PN ---
Subjective Progress Note Date: 11/21/23 Subjective: Patient seen and examined at bedside. No acute events overnight. Continues to have back pain, but improved. No new complaints. Pertinent positives and negatives as discussed above, a complete review of systems was performed and all other systems are negative. Vitals Signs Reviewed. General: Nontoxic, no distress, appears at stated age Derm: Warm, dry, back dressing not observed, Hemovac in place Head: Atraumatic, normocephalic, symmetric Eyes: EOMI, no lid lag, anicteric sclera Mouth: No lip lesion, mucus membranes moist Cardiovascular: S1S2 reg, no murmur Lungs: CTA bilateral, no rhonchi, no rales, no accessory muscle use Abdominal: Soft, nontender to palpation, no guarding, no appreciable organomegaly Ext: No gross muscle atrophy, no edema, no contractures Neuro: CN II-XI grossly intact, no focal neuro deficits Psych: Alert, oriented, appropriate affect Data Reviewed Today: Pertinent Labs: No new labs Imaging: No new imaging Assessment and Plan: Back pain status post lumbar spine surgery Leukocytosis, anticipated outcome of surgery, improving Headache, possible Spinal, resolved Abdominal pain, resolved Probable sleep apnea -Pain control: oral Welcome as needed, IV Dilaudid as needed, gabapentin 300 3 times daily, Flexeril 5 3 times daily as needed, monitor for sedation -Ortho surgery note reviewed, discharged today - Subcu heparin for DVT prophylaxis - Senna as needed -Needs outpatient sleep study, Dr. Mercedes's name is added to D/C tab COPD without exacerbation -Duoneb QID, Albuterol every 2 hours as needed History of stroke -Resume aspirin when okay with orthopedic surgery PTSD - avoid combining benzo with pain mediations -Continue atarax 25 mg PO TID for anxiety Dyslipidemia -Atorvastatin 20 mg at night nicotine dependency -Cessation Patient is medically optimized for discharge Thank you for allowing us to participate in the care of this pleasant patient. Do not hesitate to contact us with questions. Someone can be reached from the [facility] hospitalist group all hours of the day at [phone] or via perfect serve. Objective - Vital Signs Vital signs: Vital Signs Temp 98.3 F 11/21/23 08:00 Pulse 60 11/21/23 08:30 Resp 16 11/21/23 09:23 BP 156/85 11/21/23 08:00 Pulse Ox 99 11/21/23 08:00 FiO2 Intake & Output 11/20/23 11/21/23 11/21/23 18:59 06:59 18:59 Output Total 205 100 Balance -205 -100 Output: Drainage 205 100 Back 205 100 Other: Voiding Method Toilet Toilet Toilet # Voids 3 2 1 - Labs CBC & Chem 7: 11/20/23 06:50 11/19/23 06:57
--- NOTE | 2023-11-23 07:25 | CDI ---
Documentation Clarification Form Date: 11/23/2023 06:50:36 AM From: Aracely Jacobo RN CCDS Phone: [phone] Admit Date: 11/17/2023 02:50:00 PM Patient Name: Cynthia Barakat Visit Number: [id number] Discharge Date: 11/21/2023 11:39:00 AM ATTENTION: The Clinical Documentation Specialists (CDI) and [facility] Coding Staff appreciate your assistance in clarifying documentation. Please respond to the clarification below the line at the bottom and electronically sign. The CDI & [facility] Coding staff will review the response and follow-up if needed. Please note: Queries are made part of the Legal Health Record. If you have any questions, please contact the author of this message via ITS. Dr. Aldo Maddox Spinal headache is documented 11/17, Medicine progress note and patient had Posterolateral and interbody fusion, 11/16. Additional clarification is requested regarding the relationship, if any, that exists between the diagnosis and the procedure. Patients Admitting Diagnosis: Lumbar sacral spondylolysis with severe stenosis. Neurogenic claudication, lower extremity paresthesias. Post-Operative Diagnosis: Lumbar sacral spondylolysis with severe stenosis. Neurogenic claudication, lower extremity paresthesias. Dural erosion L4-5 due to stenosis and bony osteophytes. Procedure performed: Open posterolateral and interbody fusion with MARI. History/Risk Factors: 53-year-old female presents for elective spinal surgery. Medical history: low back and bilateral lower extremity pain, bilateral lower extremity numbness, tingling and weakness. 20 COPD, Stroke, anxiety, depression and Nicotine dependency. 11/16, Medical consult. Clinical Indicators: 11/16, Medical consult: Patient seen and examined at bedside. She is lethargic but arouses to voice. Immediately upon arising she is complaining of a headache that is worse at the back of her neck and extends forward. She is also feeling nauseous after the Narcan. She states her headache is much worse than her back pain. 11/18, Medical note: Headache, possible spinal, resolved. Treatment: 11/16 Acetaminophen 1,000mg @ 400mls/hr IVPB Q6H CALLIE x 4 bags; 11/16- 11/19 Fioricet 50-325-40 1 each po Q4H PRN Headache; 11/16 Caffeine/Sodium Benzoate 500mg in Sodium Chloride 1,002mls @1,002mls/hr IVPB x 1; 11/16 Decadron 10mg IV push x 1; 11/17 11/18 Decadron 6mg IVP Q6HR. What relationship, if any, exists between the diagnosis of spinal headache and the procedure: [ ] Spinal headache is a complication of surgical procedure [ ] Spinal headache is an expected outcome of the surgical procedure [ ] Spinal headache is related to patients co-morbid condition(s) & not a complication of the procedure [ ] Other please specify ____ [ ] Unable to determine (Template Last Revised: October 2020) Other please specify: This was ruled out as a spinal headache and was not one. She had a NIX post op likely due to Over sedation and apnea which was then treated with Narcan which caused her to vomit. Increased intraabdominal pressure combined with her chronic self reported history of NIX as well as the non positional nature of her NIX ruled out spinal NIX. She was treated appropriately for her NIX regardless of the source. NIRALI
== END 2023-11-21 11:39 | disposition home health service (06) | DRG 304 ==
LOC: OR 08:54 → 4SSUR 14:50
PROVIDERS: ADMIT Orthopaedic Surgery; ATTEND Orthopaedic Surgery
PROC: 0SG0071 Fusion of Lumbar Vertebral Joint with Autologous Tissue Substitute, Posterior Approach, Posterior Column, Open Approach (ICD-10-PCS; 2023-11-17)
PROC: 0SG30AJ Fusion of Lumbosacral Joint with Interbody Fusion Device, Posterior Approach, Anterior Column, Open Approach (ICD-10-PCS; 2023-11-17)
PROC: 0SG0071 Fusion of Lumbar Vertebral Joint with Autologous Tissue Substitute, Posterior Approach, Posterior Column, Open Approach (ICD-10-PCS; 2023-11-17)
PROC: 0ST20ZZ Resection of Lumbar Vertebral Disc, Open Approach (ICD-10-PCS; 2023-11-17)
PROC: 01NB0ZZ Release Lumbar Nerve, Open Approach (ICD-10-PCS; 2023-11-17)
PROC: 01NR0ZZ Release Sacral Nerve, Open Approach (ICD-10-PCS; 2023-11-17)
PROC: 8E0WXBZ Computer Assisted Procedure of Trunk Region (ICD-10-PCS; 2023-11-17)
PROC: 00UT07Z Supplement Spinal Meninges with Autologous Tissue Substitute, Open Approach (ICD-10-PCS; 2023-11-17)
PROC: 0SG00AJ Fusion of Lumbar Vertebral Joint with Interbody Fusion Device, Posterior Approach, Anterior Column, Open Approach (ICD-10-PCS; principal; 2023-11-17 10:45)
DX: M43.17 Spondylolisthesis, lumbosacral region (principal); I69.328 Other speech and language deficits following cerebral infarction; I69.312 Visuospatial deficit and spatial neglect following cerebral infarction; J44.9 Chronic obstructive pulmonary disease, unspecified; I69.344 Monoplegia of lower limb following cerebral infarction affecting left non-dominant side; D72.828 Other elevated white blood cell count; M47.26 Other spondylosis with radiculopathy, lumbar region; M48.062 Spinal stenosis, lumbar region with neurogenic claudication; M48.07 Spinal stenosis, lumbosacral region; M25.78 Osteophyte, vertebrae; M51.86 Other intervertebral disc disorders, lumbar region; N39.3 Stress incontinence (female) (male); G47.30 Sleep apnea, unspecified; G89.29 Other chronic pain; R10.9 Unspecified abdominal pain; F43.10 Post-traumatic stress disorder, unspecified; F17.210 Nicotine dependence, cigarettes, uncomplicated; E78.5 Hyperlipidemia, unspecified; G44.40 Drug-induced headache, not elsewhere classified, not intractable; T41.0X5A Adverse effect of inhaled anesthetics, initial encounter; Z79.82 Long term (current) use of aspirin; Z79.899 Other long term (current) drug therapy; Z88.2 Allergy status to sulfonamides; Z88.5 Allergy status to narcotic agent
CPT/HCPCS: 72100; 72131; 80048; 85025; 85027; 94640; 94760

== ENCOUNTER → 2024-03-12 | Outpatient (CLI) | payer OTHER ==
[2024-03-12 13:22] VITALS: BP 142/83; PULSE 68; RESP 16; TEMP 97.1
--- NOTE | 2024-03-12 15:11 | P.PAINPG ---
PQRS Measure Charge Sheet Comment: HISTORY OF PRESENT ILLNESS: A 53 yr old female presents today w severe and chronic neck pain x 5 yr secondary to post laminectomy syndrome for evaluation. Pt underwent a L4-S1 decompression w fusion in Oct 2023. Pt states pain level is provoked at 9 /10 in intensity, constant, localized in the mid to lower cervical spine, predominantly axial, throbbing/ electric in character without shooting pain. Pain is provoked by cold weather. Pain is alleviated by injections, medications, PT x 6 wks which ended Aug 2023, heat, repositioning and rest. Cervical disability score at 22. Interventional procedures include HAYLEY C6-C7 x1, L4-S1 Decompression/ Fusion (Oct 2023) Medications include Lyrica 50mg #90, Zanaflex 2mg #90, Mobic 15mg #30, Valium 2mg #60, "THC capsules" REVIEW OF ORGAN SYSTEMS: CONSTITUTIONAL: No fevers or chills. No recent weight loss. NEUROLOGICAL: + numbness and tingling along the distal extremities. No seizure disorders or headaches. MUSCULOSKELETAL: + pain PSYCHIATRIC: Denies current depression or suicidal thoughts. Physical Examinations : Constitutional : Cooperative , not in acute distress . Neurologic : Cranial nerve II to XII intact. No focal neurological deficits. Psychiatric : alert & oriented x 3. Matching mood & appropriate affect. Judgment & insight intact. Musculoskeletal : Cervical Spine Motor strength in the deltoid and biceps: Normal right side. Normal Left side Motor strength biceps and the wrist extensors: Normal right side . Normal left side Motor strength in the triceps muscle: Normal right side. Normal left side Deep tendon reflexes: Normal at the biceps. Normal at Brachioradialis. Normal at triceps Vertebral body tenderness to deep palpation over C6 Cervical facet loading test: positive bilaterally Spurling test: positive bilaterally C6- C7 Neck distraction test: positive bilaterally Keara sign: positive bilaterally Lumbar spine Motor strength lower extremities ,thigh and legs 5/5 Right side , 5/5 Left side Deep tendon reflexes : Normal Knee Jerk. Normal Ankle Jerk Vertebral body tenderness over Ferrell Test positive Lumbar facet Loading Test: positive Right / positive Left Range of motion of the lumbar spine Flexion 30 degrees, extension 10 degrees Straight Leg Raise test: Left/ Right positive at degrees Zoila test: positive right / positive left. Severe tenderness over the Sacroiliac joint on the Right / Left sides Gaenslen test: positive bilaterally Seated flexion test: positive bilaterally. Sacral spine : Severe tenderness over the Sacroiliac joint: right side / left side Range of motion: Flexion of the lumbar spine <60 degrees Range of motion: Extension of the lumbar spine <20 degrees Gaenslen's Test positive Zoila test: positive right side / left side Thigh Thrust Test Sacral Thrust Test Imaging: MRI noncontrast of the lumbar spine from 04/04/23 MRI w/ without contrast of the cervical spine from 06/19/22 reviewed Assessment/ Plan : Cervical DDD, L4-S1 decompression w fusion Recommendation of medication management. Lidocaine 5%, Lidoderm 5% to alternate daily w 1 RF. Use, side effects, adverse reactions and safe storage discussed. All questions answered. I have spent greater than 30 minutes on patient care today. Dr French was available by phone for the evaluation of this patient. The time was used to review the medical records including relevant urine studies and Prescription history (MAPs), review of the available imaging, evaluation and examination of the patient, coordination of care with the medical staff and if applicable referring physicians, as well as creation of the medical record - Pain Location Bilateral Lower Back Non-Pharmacological Interventions: Position/Reposition Pharmacological Interventions: PRN Medication, Scheduled Medication, Topical Medication PQRS Narrative: Hx Alcohol Use (MH) No Home Medications: Ambulatory Orders Aspirin [Adult Low Dose Aspirin EC] 81 mg PO DAILY 04/07/23 Atorvastatin Calcium 20 mg PO HS 04/07/23 FLUoxetine HCL [PROzac] 40 mg PO DAILY 09/19/23 Gabapentin 300 mg PO TID 09/19/23 diazePAM 2 mg PO DAILY PRN 09/19/23 traZODone HCL [Desyrel] 50 mg PO HS 09/19/23 Albuterol Sulfate [Ventolin HFA] 1 - 2 puff INHALATION Q6H PRN 11/16/23 Cholecalciferol [Vitamin D3 (25 Mcg = 1000 Iu)] 25 mcg PO DAILY 11/16/23 Cyclobenzaprine [Flexeril] 5 mg PO TID #21 tablet 11/21/23 Sennosides/Docusate Sodium [Senna Plus 8.6-50 mg Softgel] 1 each PO DAILY #20 capsule 11/21/23 cefaDROXiL [Duricef] 500 mg PO Q12HR 5 Days #10 cap 11/21/23 oxyCODONE-APAP 5-325MG [Percocet 5-325 mg] 1 tab PO Q6HR PRN #28 tab 11/21/23 polyethylene glycoL 3350 [Miralax] 17 gm PO DAILY #3 packet 11/21/23 Lidocaine 5% Oint [Xylocaine 5% Oint] 1 applic TOPICAL BID 30 Days #50 gm 03/12/24 Lidocaine 5% Patch [Lidoderm] 1 each TP DAILY 30 Days #30 patch 03/12/24 Controlled Substance Measures - Controlled Substance Measures Is patient prescribed a controlled substance at discharge?: No
== END ==
LOC: PNWHC3 12:25
PROVIDERS: ATTEND Specialist
DX: M50.323 Other cervical disc degeneration at C6-C7 level (principal); M43.27 Fusion of spine, lumbosacral region; Z88.2 Allergy status to sulfonamides; Z88.5 Allergy status to narcotic agent
CPT/HCPCS: 99211

== ENCOUNTER → 2024-06-06 | Outpatient (CLI) | payer OTHER ==
--- NOTE | 2024-06-06 11:52 | CTL ---
EXAMINATION TYPE: CT Low Dose Lung DATE OF EXAM ORDERED: 06/06/2024 HISTORY: . Lung cancer screening CT DLP: [address] CTDI: 2.56 mGy Automated exposure control for dose reduction was used. SCREENING VISIT: COMPARISON: None TECHNIQUE: Low dose computed tomography scan was performed through the chest at 1 mm thick sections a nd reconstructed images in multiple planes at 1 mm and [address] DIAGNOSTIC QUALITY: Satisfactory FINDINGS: There is no evidence of consolidative pneumonia. Mild emphysematous change. No pulmonary edema. There is a 4 mm subpleural nodule left lower lobe image 176 series 4. There are bilateral 1 mm subple ural pulmonary micronodules which have a benign appearance and most marked involving bilateral lung a pices.. No evidence of a pleural effusion. Thorax. Airways are patent. Hypertrophic and degenerative changes spine. Assessment for adenopathy limited due to lack of contrast. Multiple calcified hilar and mediastinal lymph nodes compatible with chronic granulomatous disease. Aorta of normal caliber. Mild atherosclerotic changes. Heart size normal trace pericardial fluid. No significant coronary artery calcification. Limited assessment of the upper abdomen demonstrate a small hiatal hernia. IMPRESSION: 1. Mild COPD with 4 mm subpleural left lower lobe nodule appears calcified and most likely related to small granuloma. Additional 1 mm pulmonary benign appearing micronodules. CT LUNG RAD AND CT CHEST RECOMMENDATION: Lung-Rad 2 Benign Appearance or Behavior: Continue annual sc reening with LDCT in 12 months. [facility], , 06/06/2024 11:49 AM
== END | disposition home or self-care (01) ==
LOC: RADCTMAIN 09:35
PROVIDERS: ATTEND Family Medicine
DX: Z12.2 Encounter for screening for malignant neoplasm of respiratory organs (principal); J44.9 Chronic obstructive pulmonary disease, unspecified; R91.1 Solitary pulmonary nodule; Z87.891 Personal history of nicotine dependence
CPT/HCPCS: 71271

== ENCOUNTER → 2024-10-23 | Outpatient (CLI) | payer OTHER ==
--- NOTE | 2024-10-23 14:34 | MM ---
Reason for Exam: Screening (asymptomatic). Patient History: Menarche at age 13. First Full-Term at age 19. Postmenopausal. Mother had breast cancer at or over age 50. Risk Values: Danelle 5 year model risk: 2.1%. NCI Lifetime model risk: 13.9%. Prior Study Comparison: No prior studies available for comparison. Tissue Density: There are scattered areas of fibroglandular density. Findings: Analyzed By CAD. Right breast: Focal asymmetry right breast upper outer quadrant 7.3 cm nipple measuring up to 7 mm Left breast: There is no suspicious group of microcalcifications or new suspicious mass. Overall Assessment: Benign, BI-RAD 2 Management: Diagnostic Breast Ultrasound of the right breast. [facility] will attempt to contact patient to return for supplemental views and ultrasound if indicated. Patient should continue monthly self-breast exams. A clinical breast exam by your physician is recommended on an annual basis. This exam should not preclude additional follow-up of suspicious palpable abnormalities. Note on Danelle scores and lifetime risk: 1. A Danelle score greater than 3% is considered moderate risk. If this is the case, consider specialist referral to assess eligibility for a risk reducing agent. 2. If overall lifetime risk for the development of breast cancer is 20% or higher, the patient may qualify for future screening with alternating mammogram and breast MRI. [facility], , 10/23/2024 2:31 PM. Electronically signed and approved by: Richard Donald DO
[2024-10-23 14:35] VITALS: BP 118/75; PULSE 55; RESP 17; TEMP 98
--- NOTE | 2024-10-23 15:59 | P.HPOB ---
History of Present Illness H&P Date: 10/23/24 Chief Complaint: The patient is here for her routine gynecologic exam and ma mmogram. This is a 54-year-old -0-0-2 with an LMP of 2016. The patient is here to establish with this office. She states it has been more than 10 years since her last pelvic exam. She is without gynecologic complaints and denies any postmenopausal bleeding. She is and is sexually active with her ex- . She does not believe that she is his only sexual partner. She denies any vaginal discharge or genital symptoms. Review of Systems The patient has gained 20 pounds over the last year. She denies respiratory, cardiac, or G.I. problems. Past Medical History Past Medical History: COPD, CVA/TIA, Eye Disorder, Hyperlipidemia, Osteoarthritis (OA) Additional Past Medical History / Comment(s): May 2022 CVA:lower left side weakness, speech difficulty, vision affected, ,pt states cva occurred after her last covid vaccine. Fibromyalgia. Past [employer]PUT[employer] history: Trichomonas in the past. History of Any Multi-Drug Resistant Organisms: None Reported Past Surgical History: Section, Orthopedic Surgery Additional Past Surgical History / Comment(s): d & c x2, 1990 rt upper arm fx. section x 1 followed by 2 vaginal deliveries. Back surgery. Past Anesthesia/Blood Transfusion Reactions: No Reported Reaction Past Psychological History: Anxiety, Depression, PTSD Smoking Status: Current every day smoker (4 cigarettes/day.) Past Alcohol Use History: None Reported Additional Past Alcohol Use History / Comment(s): Previously used alcohol, but quit in 1997. Past Drug Use History: Marijuana Additional Drug Use History / Comment(s): thc gummies at times. Smokes marijuana daily because "doctors will not prescribe pain medications". Additional History: She is but is sexually active with her ex-. She is disabled. - Past Family History Mother Family Medical History: Cancer Additional Family Medical History / Comment(s): Cancer of the breast. Mental health problems including schizophrenia. Maternal grandfather had diabetes. Father Family Medical History: Cancer Additional Family Medical History / Comment(s): from pancreatic cancer. Medications and Allergies Home Medications Medication Instructions Recorded Confirmed Type Atorvastatin Calcium 20 mg PO HS 04/07/23 10/23/24 History FLUoxetine HCL [PROzac] 40 mg PO DAILY 09/19/23 10/23/24 History Gabapentin 300 mg PO TID 09/19/23 10/23/24 History diazePAM 2 mg PO DAILY PRN 09/19/23 10/23/24 History traZODone HCL [Desyrel] 50 mg PO HS 09/19/23 10/23/24 History Albuterol Sulfate [Ventolin HFA] 1 - 2 puff INHALATION Q6H PRN 11/16/23 10/23/24 History polyethylene glycoL 3350 [Miralax] 17 gm PO DAILY #3 packet 11/21/23 10/23/24 Rx Cyanocobalamin [Vitamin B-12] 1 tab PO DAILY 10/23/24 10/23/24 History Cyclobenzaprine [Flexeril] 5 mg PO TID PRN 10/23/24 10/23/24 History Allergies Allergy/AdvReac Type Severity Reaction Status Date / Time Sulfa (Sulfonamide Allergy Swelling Verified 10/23/24 14:28 Antibiotics) codeine AdvReac Nausea & Verified 10/23/24 14:28 Vomiting Exam Vital Signs Temp Pulse Resp BP Pulse Ox 10/23/24 14:33 98 F 55 L 17 118/75 97 Intake and Output 10/23/24 10/23/24 10/23/24 06:59 14:59 22:59 Other: Weight 70.307 kg Height 5 feet 3 inches, weight 155 pounds, BMI 27.5. This is a well-developed well-nourished white female who is alert and oriented times 3 in no acute distress. Her speech is slightly slow and slightly slurred. She attributes this to her CVA in the past. HEENT: Within normal limits. NECK: Supple without mass or thyromegaly. CHEST AND LUNGS: Clear to auscultation. HEART: Regular rate and rhythm. BREASTS: Are without mass or discharge. AXILLARY EXAM: Negative for adenopathy. BACK: Negative for CVA tenderness. ABDOMEN: Soft, nontender, without palpable masses. PELVIC EXAM: Normal external genitalia with mild atrophy. Cervix and vagina appear normal with mild atrophy. There is no unusual discharge. There is no evidence of prolapse. The uterus is midposition, nongravid size and nontender. There are no palpable adnexal masses or tenderness. RECTAL EXAM: Rectovaginal exam is negative for mass or tenderness and is negative for occult blood. EXTREMITIES: Nontender. IMPRESSION: 1. 54-year-old menopausal female with normal gynecologic exam. 2. Suspected monogamous relationship. She believes her ex-, with whom she is sexually active, has other sexual partners. PLAN: 1. Pap smear cotest was performed. 2. Self breast awareness was discussed with the patient. We have also discussed symptoms associated with inflammatory breast cancer. 3. Screening mammogram will be done today. 4. GC and Chlamydia testing was obtained from the cervix. Trichomonas testing was also obtained from the vagina. 5. Blood STD testing. The order slip for HIV, RPR, hepatitis B surface antigen, and hepatitis C antibody was given to the patient. She can have this drawn today. 6. STD prevention was discussed. I stressed the importance of limiting sexual partners and being in a monogamous relationship. I have also recommended condoms if she is sexually active. 7. Osteoporosis prevention was discussed. I have stressed the importance of adequate calcium, vitamin D and regular exercise. Recommended amounts of calcium and vitamin D were also discussed. 8. Colorectal cancer screening was discussed. She states she does Cologuard testing through her PCP. 9. She was advised to return in one year for her annual well woman exam.
[2024-10-24 03:19] LABS: Hepatitis B Surface Antigen Nonreactive (Nonreactive); Hepatitis C IgG Antibody Nonreactive (Nonreactive)
[2024-10-24 05:52] LABS: HIV 2 AB Non-Reactive (Non-Reactive); HIV AB P24 Non-Reactive (Non-Reactive); HIV P24 AG Non-Reactive (Non-Reactive)
[2024-10-24 12:19] LABS: C. trachomatis,PCR Negative (Negative)
[2024-10-24 13:20] LABS: N. gonorrhoeae,PCR Negative (Negative)
== END | disposition home or self-care (01) ==
LOC: RADMAMWWP 13:42
PROVIDERS: ATTEND Obstetrics & Gynecology
DX: Z12.31 Encounter for screening mammogram for malignant neoplasm of breast (principal); R92.323 Mammographic fibroglandular density, bilateral breasts; J44.9 Chronic obstructive pulmonary disease, unspecified; E78.5 Hyperlipidemia, unspecified; M19.90 Unspecified osteoarthritis, unspecified site; Z86.73 Personal history of transient ischemic attack (TIA), and cerebral infarction without residual deficits; M79.7 Fibromyalgia; F17.210 Nicotine dependence, cigarettes, uncomplicated; Z78.0 Asymptomatic menopausal state; Z80.3 Family history of malignant neoplasm of breast; Z83.3 Family history of diabetes mellitus
CPT/HCPCS: 77067; 86780; 86803; 87340; 87390; 87491; 87591; 87808

== ENCOUNTER → 2024-10-26 | Outpatient (CLI) | payer OTHER ==
--- NOTE | 2024-10-26 13:27 | USB ---
Reason for Exam: Additional evaluation requested from abnormal screening. Patient History: Menarche at age 13. First Full-Term at age 19. Postmenopausal. Mother had breast cancer at or over age 50. Risk Values: Danelle 5 year model risk: 2.1%. NCI Lifetime model risk: 13.9%. Technique: Method: Targeted. Prior Study Comparison: 10/23/2024 Bilateral MG screening mammo w CAD, [facility]. Findings: The upper outer quadrant of the right breast, the axilla of the right breast and the retroareolar of the right breast were scanned. Technique utilized:US breast workup limited RT Image; Ultrasound imaging of: Area of concern, retroareolar region and axilla. Cluster of cysts at 9:00 7 cm nipple measuring up to 7 x 5 x 3 mm, no suspicious lymph nodes identified. No evidence for organizing fluid collection or mass. Technique utilized:US breast workup limited RT Image; Ultrasound imaging of: Area of concern, retroareolar region and axilla. Cluster of cysts at 9:00 7 cm nipple measuring up to 7 x 5 x 3 mm, this finding correlates with finding on mammography. No suspicious lymph nodes identified. No evidence for organizing fluid collection or mass. Overall Assessment: Benign, BI-RAD 2 Management: Screening Mammogram of both breasts in 1 year. A clinical breast exam by your physician is recommended on an annual basis and results should be correlated with mammographic findings. This exam should not preclude additional follow-up of suspicious palpable abnormalities. Results were given to the patient verbally at the time of exam. [facility], , 10/26/2024 1:24 PM. Electronically signed and approved by: Richard Donald DO
== END | disposition home or self-care (01) ==
LOC: RADUSWWP 12:37
PROVIDERS: ATTEND Obstetrics & Gynecology
DX: R92.8 Other abnormal and inconclusive findings on diagnostic imaging of breast (principal); Z78.0 Asymptomatic menopausal state; Z80.3 Family history of malignant neoplasm of breast